=== PATIENT | female | born 1970 | race Caucasian/White ===

== ENCOUNTER 2024-02-16 13:03 | Emergency (ER) | payer OTHER, SELFPAY ==
[2024-02-16 13:09] VITALS: BP 173/95; PULSE 97; TEMP 36.7; O2SAT 99; BMI 47.6
[2024-02-16 13:45] LABS: Basophils Absolute Auto 0.1 10^3/uL (0.0-0.1); Basophils Percent Auto 0.6 % (0.2-2.0); Eosinophils Absolute Auto 0.1 10^3/uL (0.0-0.7); Eosinophils Percent Auto 1.4 % (0.9-7.0); Hemoglobin 14.1 g/dL (12.0-16.0); Immature Granulocytes Abs Auto 0.03 10^3/uL (0.00-0.03); Immature Granulocytes Pct Auto 0.3 % (0.0-0.5); Lymphocytes Absolute Auto 1.6 10^3/uL (1.2-3.8); Mean Corpuscular HGB Conc 33.6 g/dL (29.9-35.2); Mean Corpuscular Hemoglobin 32.6 pg (26.7-34.0); Mean Corpuscular Volume 97.2 fL (81.0-99.0); Mean Platelet Volume 10.4 fL (9.5-13.5); Monocytes Absolute Auto 0.8 10^3/uL (0.3-0.8); Monocytes Percent Auto 8.5 % (1.7-12.0); Neutrophils Absolute Auto 7.2 10^3/uL (1.4-6.5); Neutrophils Percent Auto 73.2 % (43.0-75.0); Platelet Count 246 10^3/uL (150-450); Red Blood Count 4.32 10^6/uL (4.20-5.40); Red Cell Distribution Width 13.2 % (11.0-15.0); White Blood Count 9.8 10^3/uL (4.0-11.0)
[2024-02-16 14:08] LABS: Alanine Aminotransferase 27 U/L (14-59); Albumin Level 3.2 g/dL (3.4-5.0); Alkaline Phosphatase 161 U/L (46-116); Anion Gap 7.9; Aspartate Amino Transferase 25 U/L (15-37); BUN Creatinine Ratio 14.5; Bilirubin Total 0.5 mg/dL (0.2-1.0); Calcium 8.6 mg/dL (8.5-10.1); Carbon Dioxide 29.4 mmol/L (21.0-32.0); Chloride 104 mmol/L (98-107); Estimated GFR (African America >60 (>=60); Estimated GFR (Non-African Ame >60 (>=60); Globulin 3.2 g/dL; Glucose 171 mg/dL (74-106); Potassium 4.3 mmol/L (3.5-5.1); Sodium 137 mmol/L (136-145); Total Protein 6.4 g/dL (6.4-8.2)
--- NOTE | 2024-02-16 14:18 | ED.GENADUL1 ---
HPI HPI - General Adult General Chief complaint: Nausea/Vomiting/Diarrhea Stated complaint: Blood In Stool Time Seen by Provider: 02/16/24 13:10 Source: patient Mode of arrival: walk-in Limitations: no limitations History of Present Illness HPI narrative: The patient is coming to the ER with almost few hours history of noticing blood in her stool, mentioned that it was associated with some diarrhea. She mentioned that she been at least 3 times since the morning noticing blood with the stool, she noted no pain when having the bowel movement but she mentioned she might have had to strain a little bit The patient denies any nausea vomiting but sometimes she would have abdominal cramping mostly lower abdominal She does not have any abdominal pain at the moment Patient have a history of acid reflux on Protonix no history of any ulcer Related Data Home Medications ?Medication ?Instructions ?Recorded ?Confirmed atorvastatin 20 mg tablet 20 mg PO DAILY 02/16/24 02/16/24 carvedilol 12.5 mg tablet 12.5 mg PO DAILY 02/16/24 02/16/24 dulaglutide 4.5 mg/0.5 mL 4.5 mg subcut 02/16/24 subcutaneous pen injector (Trulicity) irbesartan 150 mg tablet 150 mg PO DAILY 02/16/24 02/16/24 levothyroxine 100 mcg tablet 100 mcg PO DAILY 02/16/24 02/16/24 (Synthroid) metformin 500 mg tablet 500 mg PO DAILY 02/16/24 02/16/24 omeprazole 40 mg capsule,delayed 40 mg PO Q8H PRN stomach upset 02/16/24 02/16/24 release tirzepatide 5 mg/0.5 mL mg subcut 02/16/24 subcutaneous pen injector (Lissa) Previous Rx's ?Medication ?Instructions ?Recorded metronidazole 500 mg tablet 500 mg PO Q8H 7 days #21 tabs 02/16/24 Allergies Allergy/AdvReac Type Severity Reaction Status Date / Time No Known Drug Allergies Allergy Verified 02/16/24 13:09 Opioid HPI Opioid Management Most Recent Opioid Data: No Data to Display Review of Systems ROS Status of ROS 10 or more systems reviewed and unremarkable except as noted in history and below PFSH PFSH Social History Little interest or pleasure in doing things: not at all Feeling down, depressed, or hopeless: not at all Exam Narrative Exam Narrative: Nurses notes and vital signs reviewed and patient is not hypoxic. General: Well-appearing and in no apparent distress. Skin: Warm, dry, no pallor noted. No rash. Head: Normocephalic, atraumatic. Neck: Supple, non-tender. Eye: Pupils are equal, round and EOMI. No scleral icterus. Ears, Nose, Mouth, and Throat: TM are clear, no nasal mucosal hypertrophy. Oral mucosa is moist, no posterior oropharynx erythema, uvula is mid-line Cardiovascular: Regular Rate and Rhythm without murmur, gallop or rub. Respiratory: No accessory muscle use or respiratory distress. Lungs are clear to auscultation, no wheezing, rales or rhonchi Chest Wall: no tenderness Back: No midline thoracic or lumbar vertebral tenderness. No CVA tenderness Musculoskeletal: normal ROM, no calf or popliteal tenderness, no lower extremity edema/swelling GI: Abdomen is soft, non-distended. Normal bowel sounds. No masses appreciated. Rectal exam shows no hemorrhoids No tenderness to palpation. No rebound, guarding, or rigidity noted. Neurological: A&O x4. No cranial nerve dysfunction observed. No truncal ataxia. Moves all extremities. Sensation intact. Psychiatric: Cooperative and interactive. Normal mood and affect. Constitutional Vital Signs, click to edit/add: Last Vital Signs Temp 98.1 F 02/16/24 13:09 Pulse 97 H 02/16/24 13:09 Resp 18 02/16/24 13:09 BP 173/95 H 02/16/24 13:09 Pulse Ox 99 02/16/24 13:09 O2 Del Method Room Air 02/16/24 13:09 Course Vital Signs Vital signs: Vital Signs Temperature 98.1 F 02/16/24 13:09 Pulse Rate 97 H 02/16/24 13:09 Respiratory Rate 18 02/16/24 13:09 Blood Pressure 173/95 H 02/16/24 13:09 Pulse Oximetry 99 02/16/24 13:09 Oxygen Delivery Method Room Air 02/16/24 13:09 Temperature 98.1 F 02/16/24 13:09 Pulse Rate 97 H 02/16/24 13:09 Respiratory Rate 18 02/16/24 13:09 Blood Pressure 173/95 H 02/16/24 13:09 Pulse Oximetry 99 02/16/24 13:09 Oxygen Delivery Method Room Air 02/16/24 13:09 Medical Decision Making MDM Narrative Medical decision making narrative: The patient rectal examination did not show any active bleeding but she did had an episode where she had blood in stool and an evaluation showed occult blood positive I did notice that the stool was almost clot-like Patient CBC and chemistry showed no acute pathology her orthostatics were negative with a blood pressure when laying down was 173/93 it went up to 192/116 when standing the patient blood pressure was 160/22 and there was no significant change in heart rate and there was no dizziness The patient CAT scan shows possible colitis The patient had no more episode of bleeding in the ER and right now she is instructed about liquid soft diet in addition to hydration and monitoring her symptoms The patient initially was offered overnight observation but she mentioned that she would just see her primary care doctor in the morning The patient hemoglobin right now is 14 and she is stable she will just keep observation of her current symptoms The patient will come back in case of increasing bleeding or any bleeding more than 24 hours Patient was covered with Flagyl for colitis She had no recent use of any antibiotic The patient is to follow up with primary care physician in next 2-3 days or to return to the emergency department should any of the signs or symptoms worsen or new symptoms develop. The patient agrees with the following Diagnosis and Treatment plan and the patient will be discharged home. Lab Data Labs: Lab Results 02/16/24 02/16/24 Range/Units 13:36 14:15 WBC 9.8 (4.0-11.0) 10^3/uL RBC 4.32 (4.20-5.40) 10^6/uL Hgb 14.1 (12.0-16.0) g/dL Hct 42.0 (36.0-48.0) % MCV 97.2 (81.0-99.0) fL MCH 32.6 (26.7-34.0) pg MCHC 33.6 (29.9-35.2) g/dL RDW 13.2 (11.0-15.0) % Plt Count 246 (150-450) 10^3/uL MPV 10.4 (9.5-13.5) fL Neut % (Auto) 73.2 (43.0-75.0) % Lymph % (Auto) 16.0 L (20.5-60.0) % [place] % (Auto) 8.5 (1.7-12.0) % Eos % (Auto) 1.4 (0.9-7.0) % Baso % (Auto) 0.6 (0.2-2.0) % Neut # (Auto) 7.2 H (1.4-6.5) 10^3/uL Lymph # (Auto) 1.6 (1.2-3.8) 10^3/uL [place] # (Auto) 0.8 (0.3-0.8) 10^3/uL Eos # (Auto) 0.1 (0.0-0.7) 10^3/uL Baso # (Auto) 0.1 (0.0-0.1) 10^3/uL Abs Immat Gran (auto) 0.03 (0.00-0.03) 10^3/uL Imm/Tot Granulo (auto) 0.3 (0.0-0.5) % Sodium 137 (136-145) mmol/L Potassium 4.3 (3.5-5.1) mmol/L Chloride 104 (98-107) mmol/L Carbon Dioxide 29.4 (21.0-32.0) mmol/L Anion Gap 7.9 BUN 12.0 (7.0-18.0) mg/dL Creatinine 0.83 (0.55-1.02) mg/dL Est GFR ( Amer) >60 (>=60) Est GFR (Non-Af Amer) >60 (>=60) BUN/Creatinine Ratio 14.5 Glucose 171 H (74-106) mg/dL Calcium 8.6 (8.5-10.1) mg/dL Total Bilirubin 0.5 (0.2-1.0) mg/dL AST 25 (15-37) U/L ALT 27 (14-59) U/L Alkaline Phosphatase 161 H (46-116) U/L Total Protein 6.4 (6.4-8.2) g/dL Albumin 3.2 L (3.4-5.0) g/dL Globulin 3.2 g/dL Albumin/Globulin Ratio 1.0 Stool Occult Blood Positive A Discharge Plan Discharge Chief Complaint: Nausea/Vomiting/Diarrhea Clinical Impression: Colitis, Rectal bleed Patient Disposition: Home, Self-Care Time of Disposition Decision: 16:05 Condition: Good Prescriptions / Home Meds: New metronidazole 500 mg tablet 500 mg PO Q8H 7 Days Qty: 21 0RF No Action atorvastatin 20 mg tablet 20 mg PO DAILY carvedilol 12.5 mg tablet 12.5 mg PO DAILY Trulicity 4.5 mg/0.5 mL pen injector 4.5 mg SUBCUT metformin 500 mg tablet 500 mg PO DAILY omeprazole 40 mg capsule,delayed release(DR/EC) 40 mg PO Q8H PRN (Reason: stomach upset) levothyroxine [Synthroid] 100 mcg tablet 100 mcg PO DAILY irbesartan 150 mg tablet 150 mg PO DAILY Mounjaro 5 mg/0.5 mL pen injector SUBCUT Print Language: Telugu Instructions: Soft Diet (ED), Colitis (ED), Full Liquid Diet (DC) Referrals: Travis Adams MD [Primary Care Provider] - 1 week
--- NOTE | 2024-02-16 14:35 | CT_ITS ---
[address] [address] Patient Name: ESPERANZA BOYLE MRN: [id number] date: 1970 Sex: F Assigned Patient Location: ER Current Patient Location: ER Accession/Order Number: [id number] Exam Date: 02/16/2024 14:44 Report Date: 02/16/2024 15:52 At the request of: DARA GEOGRE Procedure: CT abdomen pelvis wo con EXAM: CT abdomen pelvis wo con TECHNIQUE: Axial CT images were obtained of the abdomen and pelvis without intravenous contrast. Sagittal and coronal reformatted images were also obtained. Dose reduction techniques were achieved by using automated exposure control and/or adjustment of mA and/or kV according to patient size and/or use of iterative reconstruction technique. HISTORY: abd pain with rectal bleeding COMPARISON: None. FINDINGS: Lower chest: The lower lungs are clear. Liver: Small benign cyst of segment 2 of liver. Gallbladder: Small benign calcified stone of the gallbladder. Pancreas: The pancreas is homogeneous without evidence for mass lesion or inflammation. Spleen: The spleen is unremarkable without evidence for mass lesion. Adrenal glands: The adrenal glands are unremarkable Kidneys and bladder: Mild nonspecific perinephric edema. No hydronephrosis. No obstructing urinary tract stone. The ureters demonstrate normal caliber. The urinary bladder is unremarkable. GI Tract: Stomach is unremarkable. Visualized small bowel is unremarkable without evidence for obstruction or active inflammation. The appendix is unremarkable.Wall thickening of the transverse colon through the rectum. Mild pericolic inflammation of the transverse colon and descending colon. Reproductive: Unremarkable Lymph nodes: No retroperitoneal or abdominal lymphadenopathy. Vascular: The aorta is not dilated. Peritoneum: No free intraperitoneal air or fluid. No acute inflammation. Abdominal wall: Moderate degenerative facet changes of the lower lumbar spine. CT/CT abdomen pelvis wo con IMPRESSION: Wall thickening of the colon with pericolonic inflammation suspicious for inflammatory or infectious colitis. Electronically authenticated by: TERRELL VALLE Date: 02/16/2024 15:52
[2024-02-16 14:53] LABS: Occult Blood Positive
[2024-02-16 14:54] LABS: Internal Control Within Normal Limits
== END 2024-02-16 16:19 | disposition home or self-care (01) ==
PROVIDERS: Emergency Provider Emergency Medicine; PCP Family Medicine
DX: K52.9 Noninfective gastroenteritis and colitis, unspecified (principal); K62.5 Hemorrhage of anus and rectum; K21.9 Gastro-esophageal reflux disease without esophagitis; Z79.899 Other long term (current) drug therapy
CPT/HCPCS: 36415; 74176; 80053; 85025; 99285; G0328

== ENCOUNTER 2024-02-18 07:09 | Outpatient (OUT) | payer OTHER, SELFPAY ==
--- OUTSIDE RECORDS SUMMARY | 2024-02-18 07:13 | XMS_ITS | CCD ---
Author Organization [facility] Care Team Providers Care Drawing Frame Tender Name Role Phone ARLEY ADAMS Unavailable Unavailable ARLEY ADAMS Unavailable Unavailable ARLEY ADAMS Unavailable Unavailable MD Arley Adams Primary Care Provider [phone] [facility], Outreach Attending Provider LALITA ROSS Referring Unavailable LALITA ROSS Attending Unavailable LALITA ROSS Referring Unavailable MD Arley Adams Primary Care Provider [phone] Community, Outreach Attending Provider Community, Outreach Attending Unavailable Arley Adams Primary Care Unavailable Community, Outreach Admitting Unavailable Community, Outreach Attending Unavailable Arley Adams Primary Care Unavailable Community, Outreach Admitting Unavailable Results Test Name Value Interpretation Reference Range Facility Alanine aminotransferase [En zymatic activity/volume] in Serum or PlasmaOrdered By: OUTREACH COMMUNITY on 07-27-2023 ALT [Catalytic activity/Vol] 16 U/L 7-52 [facility] Albumin [Mass/volume] in Ser um or Plasma by Bromocresol green (BCG) dye binding methoOrdered By: OUTREACH COMMUNITY on 07-27-2023 Albumin BCG dye [Mass/Vol] 4.1 g/dL 3.5-5.7 [facility] Alkaline phosphatase [Enzyma tic activity/volume] in Serum or PlasmaOrdered By: OUTREACH COMMUNITY on 07-27-2023 ALP [Catalytic activity/Vol] 152 U/L 34-104 [facility] Aspartate aminotransferase [ Enzymatic activity/volume] in Serum or PlasmaOrdered By: OUTREACH COMMUNITY on 07-27-2023 AST [Catalytic activity/Vol] 19 U/L 13-39 [facility] Bilirubin.total [Mass/volume ] in Serum or PlasmaOrdered By: OUTREACH COMMUNITY on 07-27-2023 Bilirubin [Mass/Vol] 0.6 mg/dL 0.3-1.0 [facility] CBC Without Differentialon 0 07-27-2023 Erythrocyte distribution width (RBC) [Ratio] 13.8 % Normal 11.9-15.3 [facility] Comment on above: Performed By: #### O UTREACH TSH, OUTREACH LIPID, CBCNOOUTREACH, OUTREACH CMP #### [address] Hematocrit (Bld) [Volume fraction] 43.8 % Normal 34.0-46.4 [facility] Comment on above: Performed By: #### O UTREACH TSH, OUTREACH LIPID, CBCNOOUTREACH, OUTREACH CMP #### [address] Hemoglobin (Bld) [Mass/Vol] 14.8 g/dL Normal 11.8-15.4 [facility] Comment on above: Performed By: #### O UTREACH TSH, OUTREACH LIPID, CBCNOOUTREACH, OUTREACH CMP #### [address] MCH (RBC) [Entitic mass] 31.9 pg Normal 24.7-34.3 [facility] Comment on above: Performed By: #### O UTREACH TSH, OUTREACH LIPID, CBCNOOUTREACH, OUTREACH CMP #### [address] MCV (RBC) [Entitic vol] 94.6 fL Normal 80-100 [facility] Comment on above: Performed By: #### O UTREACH TSH, OUTREACH LIPID, CBCNOOUTREACH, OUTREACH CMP #### [address] Mean Corpuscular HGB Conc 33.7 g/dL Normal 32.0-35.0 [facility] Comment on above: Performed By: #### O UTREACH TSH, OUTREACH LIPID, CBCNOOUTREACH, OUTREACH CMP #### [address] Platelet mean volume (Bld) [Entitic vol] 9.2 fL Normal 6.3-10.7 [facility] Comment on above: Result Comment: PERF ORMED BY: [place] [address] PATHOLOGIST PULMONARY SPECIALIST ANTOINE CISNEROS M.D. Performed By: #### O UTREACH TSH, OUTREACH LIPID, CBCNOOUTREACH, OUTREACH CMP #### [address] Platelets (Bld) [#/Vol] 281 10*3/uL Normal 150-450 [facility] Comment on above: Performed By: #### O UTREACH TSH, OUTREACH LIPID, CBCNOOUTREACH, OUTREACH CMP #### [address] RBC (Bld) [#/Vol] 4.63 10*6/uL Normal 3.60-5.00 [facility] Comment on above: Performed By: #### O UTREACH TSH, OUTREACH LIPID, CBCNOOUTREACH, OUTREACH CMP #### [address] WBC (Bld) [#/Vol] 9.6 10*3/uL Normal 3.8-11.6 [facility] Comment on above: Performed By: #### O UTREACH TSH, OUTREACH LIPID, CBCNOOUTREACH, OUTREACH CMP #### [facility] [address] [place] [address] CMP Outreachon 07-27-2023 Albumin [Mass/Vol] 4.1 g/dL Normal 3.5-5.7 [facility] Comment on above: Performed By: #### O UTREACH TSH, OUTREACH LIPID, CBCNOOUTREACH, OUTREACH CMP #### [address] ALP [Catalytic activity/Vol] 152 U/L High 34-104 [facility] Comment on above: Performed By: #### O UTREACH TSH, OUTREACH LIPID, CBCNOOUTREACH, OUTREACH CMP #### [facility] [address] [id number] [place] ALT [Catalytic activity/Vol] 16 U/L Normal 7-52 [facility] Comment on above: Performed By: #### O UTREACH TSH, OUTREACH LIPID, CBCNOOUTREACH, OUTREACH CMP #### [facility] [address] [id number] [place] Anion gap [Moles/Vol] 8.6 mmol/L Normal 6.0-15.0 [facility] Comment on above: Performed By: #### O UTREACH TSH, OUTREACH LIPID, CBCNOOUTREACH, OUTREACH CMP #### [facility] [address] [place] [address] [place] AST [Catalytic activity/Vol] 19 U/L Normal 13-39 [facility] Comment on above: Performed By: #### O UTREACH TSH, OUTREACH LIPID, CBCNOOUTREACH, OUTREACH CMP #### [facility] [address] [place] [address] [place] Bilirubin [Mass/Vol] 0.6 mg/dL Normal 0.3-1.0 [facility] Comment on above: Performed By: #### O UTREACH TSH, OUTREACH LIPID, CBCNOOUTREACH, OUTREACH CMP #### [facility] [address] [place], [place] [id number] [place] Calcium [Mass/Vol] 9.7 mg/dL Normal 8.6-10.3 [facility] Comment on above: Performed By: #### O UTREACH TSH, OUTREACH LIPID, CBCNOOUTREACH, OUTREACH CMP #### [facility] [address] [phone] [place] Chloride [Moles/Vol] 106 mmol/L Normal 98-107 [facility] Comment on above: Performed By: #### O UTREACH TSH, OUTREACH LIPID, CBCNOOUTREACH, OUTREACH CMP #### [facility] [address] [id number] [place] CO2 [Moles/Vol] 31.2 mmol/L High 21.0-31.[address] [facility] Comment on above: Performed By: #### O UTREACH TSH, OUTREACH LIPID, CBCNOOUTREACH, OUTREACH CMP #### [facility] [address] Creatinine [Mass/Vol] 0.73 mg/dL Normal 0.60-1.20 [facility] Comment on above: Performed By: #### O UTREACH TSH, OUTREACH LIPID, CBCNOOUTREACH, OUTREACH CMP #### [facility] [address] [place] [address] [place] GFR/1.73 sq M.predicted MDRD (S/P/Bld) [Vol rate/Area] mL/min/{1.73_m2} Normal [facility] Comment on above: Performed By: #### O UTREACH TSH, OUTREACH LIPID, CBCNOOUTREACH, OUTREACH CMP #### [place] [address] [place] Glucose [Mass/Vol] 105 mg/dL High 70-100 [facility] Comment on above: Result Comment: [facility] Glucose Reference Range is dependent on time and content of last meal. Glucose of more than 200 mg/dL in a nonstressed, ambulatory subject supports the diagnosis of Diabetes Mellitus. ADA recommended reference range Performed By: #### O UTREACH TSH, OUTREACH LIPID, CBCNOOUTREACH, OUTREACH CMP #### [address] Potassium [Moles/Vol] 4.8 mmol/L Normal 3.5-5.1 [facility] Comment on above: Performed By: #### O UTREACH TSH, OUTREACH LIPID, CBCNOOUTREACH, OUTREACH CMP #### [place] [address] [place] Protein [Mass/Vol] 6.3 g/dL Low 6.4-8.9 [facility] Comment on above: Performed By: #### O UTREACH TSH, OUTREACH LIPID, CBCNOOUTREACH, OUTREACH CMP #### [place] [address] [place] Sodium [Moles/Vol] 141 mmol/L Normal 136-145 [facility] Comment on above: Performed By: #### O UTREACH TSH, OUTREACH LIPID, CBCNOOUTREACH, OUTREACH CMP #### [facility] [address] [place] [address] [place] Urea nitrogen [Mass/Vol] 13 mg/dL Normal 7-25 [facility] Comment on above: Performed By: #### O UTREACH TSH, OUTREACH LIPID, CBCNOOUTREACH, OUTREACH CMP #### [facility] [address] [place] [address] [place] Calcium [Mass/volume] in Ser um or PlasmaOrdered By: OUTREACH COMMUNITY on 07-27-2023 Calcium [Mass/Vol] 9.7 mg/dL 8.6-10.3 [facility] Carbon dioxide, total [Moles /volume] in Serum or PlasmaOrdered By: OUTREACH COMMUNITY on 07-27-2023 CO2 [Moles/Vol] 31.2 mmol/L 21.0-31.[address] [facility] Chloride [Moles/volume] in S nazanin or PlasmaOrdered By: OUTREACH COMMUNITY on 07-27-2023 Chloride [Moles/Vol] 106 mmol/L 98-107 [facility] Cholesterol [Mass/volume] in Serum or PlasmaOrdered By: OUTREACH COMMUNITY on 07-27-2023 Cholesterol [Mass/Vol] 136 mg/dL 140-200 [facility] Comment on above: Chol less than 200 m g/dl low riskChol 201-239 mg/dl borderline riskChol 240 mg/dl and greater high risk Cholesterol in LDL Calc [Mas s/Vol]Ordered By: OUTREACH COMMUNITY on 07-27-2023 Cholesterol in LDL [Mass/Vol] 80 mg/dL 0-100 [facility] Comment on above: LDL ATP III CLASSIFI CATIONLDL less than 100 mg/dL OptimalLDL 100-129 mg/dL Near or above optimalLDL 130-159 mg/dL Borderline highLDL 160-189 mg/dL HighLDL greater than 189 mg/dL Very high Cholesterol in VLDL Calc [Ma ss/Vol]Ordered By: OUTREACH COMMUNITY on 07-27-2023 Cholesterol in VLDL [Mass/Vol] 15 mg/dL [facility] Creatinine [Mass/volume] in Serum or PlasmaOrdered By: OUTREACH COMMUNITY on 07-27-2023 Creatinine [Mass/Vol] 0.73 mg/dL 0.60-1.20 [facility] Erythrocyte distribution wid th Auto (RBC) [Ratio]Ordered By: [facility] on 07-27-2023 Erythrocyte distribution width (RBC) [Ratio] 13.8 % 11.9-15.3 [facility] Glucose [Mass/volume] in Ser um or PlasmaOrdered By: [facility] on 07-27-2023 Glucose [Mass/Vol] 105 mg/dL 70-100 [facility] Comment on above: ADA recommended refe rence rangeRandom Glucose Reference Range is dependent on time and content of last meal. Glucose of more than 200 mg/dL in a nonstressed, ambulatory subject supports the diagnosis of Diabetes Mellitus. Hematocrit Auto (Bld) [Volum e fraction]Ordered By: [facility] on 07-27-2023 Hematocrit (Bld) [Volume fraction] 43.8 % 34.0-46.4 [facility] Hemoglobin [Mass/volume] in BloodOrdered By: [facility] on 07-27-2023 Hemoglobin (Bld) [Mass/Vol] 14.8 g/dL 11.8-15.4 [facility] Leukocytes [#/volume] correc alison for nucleated erythrocytes in Blood by Automated counOrdered By: [facility] on 07-27-2023 WBC corrected for nucl RBC Auto (Bld) [#/Vol] 9.6 10*3/uL 3.8-11.6 [facility] Lipid Profile Outreachon Cholesterol [Mass/Vol] 136 mg/dL Low 140-200 [facility] Comment on above: Result Comment: Chol less than 200 mg/dl low risk Chol 201-239 mg/dl borderline risk Chol 240 mg/dl and greater high risk Performed By: #### O [facility] TSH, OUTREACH LIPID, CBCNOOUTREACH, OUTREACH CMP #### [facility] [address] Cholesterol in HDL [Mass/Vol] 41 mg/dL Normal 23-92 [facility] Comment on above: Result Comment: HDL CHOL ATP-III CLASSIFICATION Cardiovascular Risk HDL > or equal to 60 mg/dL LOW HDL < 40 mg/dL HIGH Performed By: #### O UTREA TSH, OUTREACH LIPID, CBCNOOUTREACH, OUTREACH CMP #### [facility] [address] Cholesterol.total/Saimra sterol in HDL [Mass ratio] 3.3 {ratio} Normal <5.0 [facility] Comment on above: Performed By: #### O UTREACH TSH, OUTREACH LIPID, CBCNOOUTREACH, OUTREACH CMP #### [facility] [address] LDL Cholesterol,Calculated 80 mg/dL Normal 0-100 [facility] Comment on above: Result Comment: LDL ATP III CLASSIFICATION LDL less than 100 mg/dL Optimal LDL 100-129 mg/dL Near or above optimal LDL 130-159 mg/dL Borderline high LDL 160-189 mg/dL High LDL greater than 189 mg/dL Very high Performed By: #### O UTREACH TSH, OUTREACH LIPID, CBCNOOUTREACH, OUTREACH CMP #### [facility] [address] Triglyceride w/Reflex 77 mg/dL Normal 0-149 [facility] Comment on above: Result Comment: TRIG ATP III CLASSIFICATION TRIG less than 150 mg/dL Normal TRIG 150-199 mg/dL Borderline high TRIG 200-500 mg/dL High TRIG greater than 500 mg/dL Very high Standard traceable to the Center for Disease Conrtrol and Prevention (CDC) test method. Performed By: #### O UTREACH TSH, OUTREACH LIPID, CBCNOOUTREACH, OUTREACH CMP #### [facility] [address] VLDL CHOLESTEROL 15 mg/dL Normal [facility] Comment on above: Performed By: #### O UTREACH TSH, OUTREACH LIPID, CBCNOOUTREACH, OUTREACH CMP #### [facility] [address] MCH Auto (RBC) [Entitic mass ]Ordered By: OUTREACH COMMUNITY on 07-27-2023 MCH (RBC) [Entitic mass] 31.9 pg 24.7-34.3 [facility] MCHC Auto (RBC) [Mass/Vol]Or dered By: OUTREACH COMMUNITY on 07-27-2023 MCHC (RBC) [Mass/Vol] 33.7 g/dL 32.0-35.0 [facility] MCV Auto (RBC) [Entitic vol] Ordered By: OUTREACH [facility] on 07-27-2023 MCV (RBC) [Entitic vol] 94.6 fL 80-100 [facility] No Panel InformationOrdered By: OUTREACH [facility] on 07-27-2023 Estimated GFR (CKD-EPI) > 60.0 mL/Min [facility] Creatinine Clearance (Chem N/A [facility] Platelet mean volume Auto (B ld) [Entitic vol]Ordered By: OUTREACH [facility] on 07-27-2023 Platelet mean volume (Bld) [Entitic vol] 9.2 fL 6.3-10.7 [facility] Platelets Auto (Bld) [#/Vol] Ordered By: OUTREACH [facility] on 07-27-2023 Platelets (Bld) [#/Vol] 281 10*3/uL 150-450 [facility] Potassium [Moles/volume] in Serum or PlasmaOrdered By: OUTREACH [facility] on 07-27-2023 Potassium [Moles/Vol] 4.8 mmol/L 3.5-5.1 [facility] Protein [Mass/volume] in Ser um or PlasmaOrdered By: OUTREACH [facility] on 07-27-2023 Protein [Mass/Vol] 6.3 g/dL 6.4-8.9 [facility] RBC Auto (Bld) [#/Vol]Ordere d By: OUTREACH [facility] on 07-27-2023 RBC (Bld) [#/Vol] 4.63 10*6/uL 3.60-5.00 [facility] Serum or plasma anion gap de terminationOrdered By: OUTREACH [facility] on 07-27-2023 Anion gap [Moles/Vol] 8.6 mmol/L 6.0-15.0 [facility] Serum or plasma high density lipoprotein (HDL) cholesterol measurementOrdered By: OUTREACH [facility] on 07-27-2023 Cholesterol in HDL [Mass/Vol] 41 mg/dL 23-92 [facility] Comment on above: HDL CHOL ATP-III CLA SSIFICATION Cardiovascular RiskHDL > or equal to 60 mg/dL LOWHDL < 40 mg/dL HIGH Serum or plasma total choles terol/high density lipoprotein (HDL) cholesterol mass ratOrdered By: OUTREACH COMMUNITY on 07-27-2023 Cholesterol.total/Samira sterol in HDL [Mass ratio] 3.3 {ratio} <5.0 [facility] Sodium [Moles/volume] in Ser um or PlasmaOrdered By: OUTREACH [facility] on 07-27-2023 Sodium [Moles/Vol] 141 mmol/L 136-145 [facility] Thyroid Stimulating Hormoneo n 07-27-2023 TSH Qn 1.87 m[IU]/L Normal 0.45-5.33 [facility] Comment on above: Result Comment: PERF ORMED BY: [place] [address] PATHOLOGIST PULMONARY SPECIALIST ANTOINE CISNEROS M.D. Performed By: #### [facility] TSH, OUTREACH LIPID, CBCNOOUTREACH, OUTREACH CMP #### [facility] [address] Thyrotropin [Units/volume] i n Serum or PlasmaOrdered By: OUTREACH [facility] on 07-27-2023 TSH Qn 1.87 m[IU]/L 0.45-5.33 [facility] Triglyceride [Mass/volume] i n Serum or PlasmaOrdered By: [facility] on 07-27-2023 Triglyceride [Mass/Vol] 77 mg/dL 0-149 [facility] Comment on above: TRIG ATP III CLASSIF ICATIONTRIG less than 150 mg/dL NormalTRIG 150-199 mg/dL Borderline highTRIG 200-500 mg/dL High TRIG greater than 500 mg/dL Very highStandard traceable to the Center for Disease Conrtrol and Prevention (CDC) test method. Urea nitrogen [Mass/volume] in Serum or PlasmaOrdered By: OUTREACH COMMUNITY on 07-27-2023 Urea nitrogen [Mass/Vol] 13 mg/dL 7- [facility] BI MAMMOGRAM SCREENING TOMOS YNTHESIS BILATERALon 04-25-2023 BI MAMMOGRAM SCREENING TOMOSYNTHESIS BILATERAL This is a summary report. The complete report is available in the patient's medical record. If you cannot access the medical record, please contact the sending organization for a detailed fax or copy. EXAMINATION: BI MAMMOGRAM SCREENING TOMOSYNTHESIS BILATERAL CLINICAL HISTORY: screening COMPARISON: Priors from 2021, 2019, 2018. RESULT: 3-D tomosynthesis imaging of the bilateral breast(s) was performed. Density: Scattered fibroglandular density [2] There are no suspicious masses or asymmetries, areas of architectural distortion or suspicious areas of microcalcifications. IMPRESSION: BIRADS 1 - Negative Recommended follow-up: Routine Screening Mamm Board Certified Radiologists. Accredited by the ACR and FDA. MAMMOGRAPHY IS VERY IMPORTANT TO YOUR HEALTH. THE [place] [employer] GUIDELINES RECOMMEND THAT WOMEN 40 YEARS OF AGE AND OLDER SHOULD HAVE A MAMMOGRAM EVERY YEAR. A REMINDER LETTER WILL BE SENT AT THE APPROPRIATE TIME. THIS FACILITY UTILIZES A REMINDER SYSTEM TO ENSURE ALL PATIENTS RECEIVE REMINDER NOTIFICATIONS AT THE APPROPRIATE TIME BASED ON THE RECOMMENDATIONS OF THIS EXAM. THIS INCLUDES REMINDERS FOR ROUTINE SCREENING MAMMOGRAMS, DIAGNOSTIC MAMMOGRAMS IN WHICH THE PATIENT IS ASKED TO RETURN FOR ADDITIONAL VIEWS, OR OTHER BREAST IMAGING INTERVENTIONS WHEN APPROPRIATE. THE PATIENT WILL BE PLACED IN THE APPROPRIATE REMINDER SYSTEM INCLUDING A REMINDER AT THE APPROPRIATE TIME FOR ANY PENDING ADDITIONAL VIEWS. ELECTRONICALLY SIGNED BY: Stevenson Nick MD Normal Not Available Comment on above: Order Comment: Spot compression and us prn Alanine aminotransferase [En zymatic activity/volume] in Serum or PlasmaOrdered By: OUTREACH COMMUNITY on 08-25-2022 ALT [Catalytic activity/Vol] 15 U/L Normal 7-52 [facility] Comment on above: Performed By: #### C BCNOOUTREACH, OUTREACH GLYCO, OUTREACH CMP, OUTREACH LIPID, OUTREACH TSH #### [facility] [address] [place] [address] [place] Albumin [Mass/volume] in Ser um or Plasma by Bromocresol green (BCG) dye binding methoOrdered By: OUTREACH COMMUNITY on 08-25-2022 Albumin BCG dye [Mass/Vol] 4.4 g/dL 3.5-5.7 [facility] Alkaline phosphatase [Enzyma tic activity/volume] in Serum or PlasmaOrdered By: OUTREACH COMMUNITY on 08-25-2022 ALP [Catalytic activity/Vol] 145 U/L High 34-104 [facility] Comment on above: Performed By: #### C BCNOOUTREACH, OUTREACH GLYCO, OUTREACH CMP, OUTREACH LIPID, OUTREACH TSH #### [facility] [address] Aspartate aminotransferase [ Enzymatic activity/volume] in Serum or PlasmaOrdered By: OUTREACH COMMUNITY on 08-25-2022 AST [Catalytic activity/Vol] 20 U/L Normal 13-39 [facility] Comment on above: Performed By: #### C BCNOOUTREACH, OUTREACH GLYCO, OUTREACH CMP, OUTREACH LIPID, OUTREACH TSH #### [facility] [address] Bilirubin.total [Mass/volume ] in Serum or PlasmaOrdered By: OUTREACH COMMUNITY on 08-25-2022 Bilirubin [Mass/Vol] 0.7 mg/dL Normal 0.3-1.0 [facility] Comment on above: Performed By: #### C BCNOOUTREACH, OUTREACH GLYCO, OUTREACH CMP, OUTREACH LIPID, OUTREACH TSH #### [facility] [address] [place] [address] CBC Without Differentialon 0 08-25-2022 Mean Corpuscular HGB Conc 33.3 g/dL Normal 32.0-35.0 [facility] Comment on above: Performed By: #### C BCNOOUTREACH, OUTREACH GLYCO, OUTREACH CMP, OUTREACH LIPID, OUTREACH TSH #### [facility] [address] [place] [address] WBC (Bld) [#/Vol] 6.9 10*3/uL Normal 3.8-11.6 [facility] Comment on above: Performed By: #### C BCNOOUTREACH, OUTREACH GLYCO, OUTREACH CMP, OUTREACH LIPID, OUTREACH TSH #### [facility] [address] CMP Outreachon 08-25-2022 Albumin [Mass/Vol] 4.4 g/dL Normal 3.5-5.7 [facility] Comment on above: Performed By: #### C BCNOOUTREACH, OUTREACH GLYCO, OUTREACH CMP, OUTREACH LIPID, OUTREACH TSH #### [facility] [address] [place] [address] CMP OutreachOrdered By: OUTR EACH COMMUNITY on 08-25-2022 GFR/1.73 sq M.predicted MDRD (S/P/Bld) [Vol rate/Area] mL/min/{1.73_m2} Normal [facility] Comment on above: Performed By: #### C BCNOOUTREACH, OUTREACH GLYCO, OUTREACH CMP, OUTREACH LIPID, OUTREACH TSH #### [facility] [address] [phone] [place] Calcium [Mass/volume] in Ser um or PlasmaOrdered By: OUTREACH COMMUNITY on 08-25-2022 Calcium [Mass/Vol] 10.3 mg/dL Normal 8.6-10.3 [facility] Comment on above: Performed By: #### C BCNOOUTREACH, OUTREACH GLYCO, OUTREACH CMP, OUTREACH LIPID, OUTREACH TSH #### [facility] [address] [place] [address] [place] Carbon dioxide, total [Moles /volume] in Serum or PlasmaOrdered By: OUTREACH COMMUNITY on 08-25-2022 CO2 [Moles/Vol] 28.3 mmol/L Normal 21.0-31.[address] [facility] Comment on above: Performed By: #### C BCNOOUTREACH, OUTREACH GLYCO, OUTREACH CMP, OUTREACH LIPID, OUTREACH TSH #### [facility] [address] [place] [address] [place] Chloride [Moles/volume] in S nazanin or PlasmaOrdered By: OUTREACH COMMUNITY on 08-25-2022 Chloride [Moles/Vol] 106 mmol/L Normal 98-107 [facility] Comment on above: Performed By: #### C BCNOOUTREACH, OUTREACH GLYCO, OUTREACH CMP, OUTREACH LIPID, OUTREACH TSH #### [facility] [address] [phone] [place] Cholesterol [Mass/volume] in Serum or PlasmaOrdered By: OUTREACH COMMUNITY on 08-25-2022 Cholesterol [Mass/Vol] 133 mg/dL Low 140-200 [facility] Comment on above: Chol less than 200 m g/dl low riskChol 201-239 mg/dl borderline riskChol 240 mg/dl and greater high risk Result Comment: Chol less than 200 mg/dl low risk Chol 201-239 mg/dl borderline risk Chol 240 mg/dl and greater high risk Performed By: #### C BCNOOUTREACH, OUTREACH GLYCO, OUTREACH CMP, OUTREACH LIPID, OUTREACH TSH #### [facility] [address] [place] [address] [place] Cholesterol in LDL Calc [Mas s/Vol]Ordered By: [facility] on 08-25-2022 Cholesterol in LDL [Mass/Vol] 69 mg/dL 0-100 [facility] Comment on above: LDL ATP III CLASSIFI CATIONLDL less than 100 mg/dL OptimalLDL 100-129 mg/dL Near or above optimalLDL 130-159 mg/dL Borderline highLDL 160-189 mg/dL HighLDL greater than 189 mg/dL Very high Cholesterol in VLDL Calc [Ma ss/Vol]Ordered By: [facility] on 08-25-2022 Cholesterol in VLDL [Mass/Vol] 14 mg/dL [facility] Creatinine [Mass/volume] in Serum or PlasmaOrdered By: [facility] on 08-25-2022 Creatinine [Mass/Vol] 0.70 mg/dL Normal 0.60-1.20 [facility] Comment on above: Performed By: #### C BCNOOUTREACH, OUTREACH GLYCO, OUTREACH CMP, OUTREACH LIPID, OUTREACH TSH #### [facility] [address] [id number] [place] Erythrocyte distribution wid th [Ratio] by Automated countOrdered By: [facility] on 08-25-2022 Erythrocyte distribution width (RBC) [Ratio] 14.2 % Normal 11.9-15.3 [facility] Comment on above: Performed By: #### C BCNOOUTREACH, OUTREACH GLYCO, OUTREACH CMP, OUTREACH LIPID, OUTREACH TSH #### [facility] Administration [address] [id number] [place] Erythrocytes [#/volume] in B lood by Automated countOrdered By: [facility] on 08-25-2022 RBC (Bld) [#/Vol] 4.56 10*6/uL Normal 3.60-5.00 [facility] Comment on above: Performed By: #### C BCNOOUTREACH, OUTREACH GLYCO, OUTREACH CMP, OUTREACH LIPID, OUTREACH TSH #### [facility] [address] [place] [address] [place] Glucose [Mass/volume] in Ser um or PlasmaOrdered By: [facility] on 08-25-2022 Glucose [Mass/Vol] 108 mg/dL Normal 74-109 [facility] Comment on above: ADA recommended refe rence rangeRandom Glucose Reference Range is dependent on time and content of last meal. Glucose of more than 200 mg/dL in a nonstressed, ambulatory subject supports the diagnosis of Diabetes Mellitus. Result Comment: [place] Glucose Reference Range is dependent on time and content of last meal. Glucose of more than 200 mg/dL in a nonstressed, ambulatory subject supports the diagnosis of Diabetes Mellitus. ADA recommended reference range Performed By: #### C BCNOOUTREACH, OUTREACH GLYCO, OUTREACH CMP, OUTREACH LIPID, OUTREACH TSH #### [facility] [address] Glucose mean value [Mass/vol ume] in Blood Estimated from glycated hemoglobinOrdered By: [facility] on 08-25-2022 Average glucose Estimated from glycated hemoglobin (Bld) [Mass/Vol] 128 mg/dL [facility] Hematocrit [Volume Fraction] of Blood by Automated countOrdered By: [facility] on 08-25-2022 Hematocrit (Bld) [Volume fraction] 43.9 % Normal 34.0-46.4 [facility] Comment on above: Performed By: #### C BCNOOUTREACH, OUTREACH GLYCO, OUTREACH CMP, OUTREACH LIPID, OUTREACH TSH #### [facility] [address] [place] [address] [place] Hemoglobin [Mass/volume] in BloodOrdered By: [facility] on 08-25-2022 Hemoglobin (Bld) [Mass/Vol] 14.6 g/dL Normal 11.8-15.4 [facility] Comment on above: Performed By: #### C BCNOOUTREACH, OUTREACH GLYCO, OUTREACH CMP, OUTREACH LIPID, OUTREACH TSH #### [facility] [address] [id number] [place] Leukocytes [#/volume] correc alison for nucleated erythrocytes in Blood by Automated counOrdered By: [facility] on 08-25-2022 WBC corrected for nucl RBC Auto (Bld) [#/Vol] 6.9 10*3/uL 3.8-11.6 [facility] Lipid Profile Outreachon LDL Cholesterol,Calculated 69 mg/dL Normal 0-100 [facility] Comment on above: Result Comment: LDL ATP III CLASSIFICATION LDL less than 100 mg/dL Optimal LDL 100-129 mg/dL Near or above optimal LDL 130-159 mg/dL Borderline high LDL 160-189 mg/dL High LDL greater than 189 mg/dL Very high Performed By: #### C BCNOOUTREACH, OUTREACH GLYCO, OUTREACH CMP, OUTREACH LIPID, OUTREACH TSH #### [facility] [address] Triglyceride w/Reflex 72 mg/dL Normal 0-149 [facility] Comment on above: Result Comment: TRIG ATP III CLASSIFICATION TRIG less than 150 mg/dL Normal TRIG 150-199 mg/dL Borderline high TRIG 200-500 mg/dL High TRIG greater than 500 mg/dL Very high Standard traceable to the Center for Disease Conrtrol and Prevention (CDC) test method. Performed By: #### C BCNOOUTREACH, OUTREACH GLYCO, OUTREACH CMP, OUTREACH LIPID, OUTREACH TSH #### [address] VLDL CHOLESTEROL 14 mg/dL Normal [facility] Comment on above: Performed By: #### C BCNOOUTREACH, OUTREACH GLYCO, OUTREACH CMP, OUTREACH LIPID, OUTREACH TSH #### [address] MCH [Entitic mass] by Automa alison countOrdered By: OUTREACH COMMUNITY on 08-25-2022 MCH (RBC) [Entitic mass] 32.0 pg Normal 24.7-34.3 [facility] Comment on above: Performed By: #### C BCNOOUTREACH, OUTREACH GLYCO, OUTREACH CMP, OUTREACH LIPID, OUTREACH TSH #### [facility] [address] [place] [address] MCHC Auto (RBC) [Mass/Vol]Or dered By: OUTREACH COMMUNITY on 08-25-2022 MCHC (RBC) [Mass/Vol] 33.3 g/dL 32.0-35.0 [facility] MCV [Entitic volume] by Auto mated countOrdered By: OUTREACH COMMUNITY on 08-25-2022 MCV (RBC) [Entitic vol] 96.3 fL Normal 80-100 [facility] Comment on above: Performed By: #### C BCNOOUTREACH, OUTREACH GLYCO, OUTREACH CMP, OUTREACH LIPID, OUTREACH TSH #### [facility] [address] [place] [address] No Panel InformationOrdered By: OUTREACH COMMUNITY on 08-25-2022 Pharmacy Creatinine Clearance (Chem N/A [facility] 08-25-2022 Glucose [Mass/Vol] 128 mg/dL Normal [facility] Comment on above: Result Comment: PERF ORMED BY: [place] [address] PATHOLOGIST PULMONARY SPECIALIST ANTOINE CISNEROS M.D. Performed By: #### C BCNOOUTREACH, OUTREACH GLYCO, OUTREACH CMP, OUTREACH LIPID, OUTREACH TSH #### [facility] [address] [place] [address] Outreach GlycoOrdered By: [facility] on 08-25-2022 HbA1c (Bld) [Mass fraction] 6.1 % High 4.3-5.6 [facility] Comment on above: Increased risk for d iabetes: 5.7 - 6.4diabetes: >6.4glycemic control for adults with diabetes: <7.0 Result Comment: Incr eased risk for diabetes: 5.7 - 6.4 diabetes: >6.4 glycemic control for adults with diabetes: <7.0 Performed By: #### C BCNOOUTREACH, OUTREACH GLYCO, OUTREACH CMP, OUTREACH LIPID, OUTREACH TSH #### [facility] [address] [place] [address] Platelet mean volume [Entiti c volume] in Blood by Automated countOrdered By: [facility] on 08-25-2022 Platelet mean volume (Bld) [Entitic vol] 9.4 fL Normal 6.3-10.7 [facility] Comment on above: Result Comment: PERF ORMED BY: [place] [address] PATHOLOGIST PULMONARY SPECIALIST ANTOINE CISNEROS M.D. Performed By: #### C BCNOOUTREACH, OUTREACH GLYCO, OUTREACH CMP, OUTREACH LIPID, OUTREACH TSH #### [facility] [address] [place] [address] [place] Platelets [#/volume] in Bloo d by Automated countOrdered By: OUTREACH COMMUNITY on 08-25-2022 Platelets (Bld) [#/Vol] 241 10*3/uL Normal 150-450 [facility] Comment on above: Performed By: #### C BCNOOUTREACH, OUTREACH GLYCO, OUTREACH CMP, OUTREACH LIPID, OUTREACH TSH #### [facility] [address] [place] [address] [place] Potassium [Moles/volume] in Serum or PlasmaOrdered By: [facility] on 08-25-2022 Potassium [Moles/Vol] 4.7 mmol/L Normal 3.5-5.1 [facility] Comment on above: Performed By: #### C BCNOOUTREACH, OUTREACH GLYCO, OUTREACH CMP, OUTREACH LIPID, OUTREACH TSH #### [facility] [address] [place] [address] [place] Protein [Mass/volume] in Ser um or PlasmaOrdered By: OUTREACH COMMUNITY on 08-25-2022 Protein [Mass/Vol] 6.7 g/dL Normal 6.4-8.9 [facility] Comment on above: Performed By: #### C BCNOOUTREACH, OUTREACH GLYCO, OUTREACH CMP, OUTREACH LIPID, OUTREACH TSH #### [facility] [address] [place], [place] [id number] [place] Serum or plasma anion gap de terminationOrdered By: OUTREACH COMMUNITY on 08-25-2022 Anion gap [Moles/Vol] 12.4 mmol/L Normal 6.0-15.0 [facility] Comment on above: Performed By: #### C BCNOOUTREACH, OUTREACH GLYCO, OUTREACH CMP, OUTREACH LIPID, OUTREACH TSH #### [facility] [address] [place] [address] [place] Serum or plasma high density lipoprotein (HDL) cholesterol measurementOrdered By: OUTREACH COMMUNITY on 08-25-2022 Cholesterol in HDL [Mass/Vol] 50 mg/dL Normal 35-85 [facility] Comment on above: HDL CHOL ATP-III CLA SSIFICATION Cardiovascular RiskHDL > or equal to 60 mg/dL LOWHDL < 40 mg/dL HIGH Result Comment: HDL CHOL ATP-III CLASSIFICATION Cardiovascular Risk HDL > or equal to 60 mg/dL LOW HDL < 40 mg/dL HIGH Performed By: #### C BCNOOUTREACH, OUTREACH GLYCO, OUTREACH CMP, OUTREACH LIPID, OUTREACH TSH #### [facility] [address] Serum or plasma total choles terol/high density lipoprotein (HDL) cholesterol mass ratOrdered By: OUTREACH COMMUNITY on 08-25-2022 Cholesterol.total/Samira sterol in HDL [Mass ratio] 2.7 {ratio} Normal <5.0 [facility] Comment on above: Performed By: #### C BCNOOUTREACH, OUTREACH GLYCO, OUTREACH CMP, OUTREACH LIPID, OUTREACH TSH #### [facility] [address] [place] [address] [place] Sodium [Moles/volume] in Ser um or PlasmaOrdered By: OUTREACH COMMUNITY on 08-25-2022 Sodium [Moles/Vol] 142 mmol/L Normal 136-145 [facility] Comment on above: Performed By: #### C BCNOOUTREACH, OUTREACH GLYCO, OUTREACH CMP, OUTREACH LIPID, OUTREACH TSH #### [facility] [address] [place] [address] Thyrotropin [Units/volume] i n Serum or PlasmaOrdered By: [facility] on 08-25-2022 TSH Qn 1.44 m[IU]/L Normal 0.45-5.33 [facility] Comment on above: Result Comment: PERF ORMED BY: [place] [address] PATHOLOGIST PULMONARY SPECIALIST ANTOINE CISNEROS M.D. Performed By: #### C BCNOOUTREACH, OUTREACH GLYCO, OUTREACH CMP, OUTREACH LIPID, OUTREACH TSH #### [facility] [address] [place] [address] Triglyceride [Mass/volume] i n Serum or PlasmaOrdered By: OUTREACH COMMUNITY on 08-25-2022 Triglyceride [Mass/Vol] 72 mg/dL 0-149 [facility] Comment on above: TRIG ATP III CLASSIF ICATIONTRIG less than 150 mg/dL NormalTRIG 150-199 mg/dL Borderline highTRIG 200-500 mg/dL High TRIG greater than 500 mg/dL Very highStandard traceable to the Center for Disease Conrtrol and Prevention (CDC) test method. Urea nitrogen [Mass/volume] in Serum or PlasmaOrdered By: OUTREACH COMMUNITY on 08-25-2022 Urea nitrogen [Mass/Vol] 15 mg/dL Normal 7-25 [facility] Comment on above: Performed By: #### C BCNOOUTREACH, OUTREACH GLYCO, OUTREACH CMP, OUTREACH LIPID, OUTREACH TSH #### [facility] [address] SCREENING MAMMOGRAM W/SWETA, BILATERAL*on 04-27-2022 SCREENING MAMMOGRAM W/SWETA, BILATERAL* CLINICAL HISTORY: Screening Mammogram COMPARISON: Priors dating back to 2014 TECHNIQUE: 2D and 3D mammogram imaging of both breasts was performed. RESULT: DENSITY: There are scattered areas of fibroglandular density. There is no suspicious mass, asymmetry, architectural distortion, or calcification. No significant change since the prior mammograms. IMPRESSION: BIRADS 1 : NEGATIVE, NORMAL INTERVAL FOLLOW UP FOLLOW-UP: 12 months DENSITY: Scattered MAMMOGRAPHY IS VERY IMPORTANT TO YOUR HEALTH. THE CURRENT [place] [employer] GUIDELINES RECOMMENDS ANNUAL MAMMOGRAPHY BEGINNING AT AGE 40 THIS FACILITY USES A REMINDER SYSTEM TO ENSURE ALL PATIENTS RECEIVE REMINDER NOTIFICATIONS AT THE APPROPRIATE TIME BASED ON THE RECOMMENDATIONS OF THIS EXAM. Board Certified Radiologist. Accredited by the ACR and FDA. Report reported and signed by Stevenson Nick on 04/27/2022 1048 Normal [facility] Provider Letter FTon 10-26 Provider Letter [facility] [place] October 26, 2021 ESPERANZA BOYLE [address] [place] [id number] ESPERANZA BOYLE 1970 Dear Esperanza , We have been trying to reach you with no success. It is important that you return our call upon receiving this letter. Also, at the time of your call, please provide us with your current information. Thank you for your prompt attention to this matter. Sincerely, [facility] Physician Referralon 022 Physician Referral [phone] [id number] [facility] GLYCOHEMOGLOBIN A1Con 2017 Glucose mass conc 131 mg/dL Normal [facility] Comment on above: Performed By: #### A 1C ####[facility] [id number] [place], [place] [address]OzooxjKarly Tsang Hemoglobin A1c/Hemoglobin.total mass fraction (Bld) 6.2 % Critically high <=6.0 [facility] Comment on above: Performed By: #### A 1C ####[facility] [id number] [place], [place] [address]Vkeyau Trinh Encounters Encounter Date Encounter Type Care Provider Facility Start: 07-27-2023 End: 07-27-2023 ambulatory Outreach Community Facility:[facility] Start: 07-27-2023 End: 07-27-2023 ambulatory MD Arley Adams Work Phone: [facility] Work Phone: Start: 07-27-2023 End: 07-27-2023 Departed Referred MD Arley Adams Work Phone: [facility]-Community Outreach Work Phone: Start: 06-06-2023 End: 06-07-2023 ambulatory LALITA ROSS Not Available Start: 04-25-2023 End: 04-25-2023 ambulatory LALITAKORINA RUIZKES Not Available Start: 08-25-2022 End: 08-25-2022 ambulatory Outreach Community Facility:[facility] Start: 08-25-2022 End: 08-25-2022 ambulatory MD Arley Adams Work Phone: [facility] Work Phone: Start: 08-25-2022 End: 08-25-2022 Departed Referred MD Arley Adams Work Phone: [facility] Outreach Work Phone: Start: 09-09-2017 End: 09-10-2017 Ambulatory ARLEY ADAMS Facility:H1 Payers Date Payer Category Payer Self-pay [id number] 2020 Unknown [id number] 1970 Unknown [id number] 1970 Unknown [id number] 1961 Self-pay [id number] Private Health Insurance [facility] [id number] Unknown MMO [employer] [id number] Unknown [id number] Unknown [id number] Social History Date Type Detail Facility Tobacco smoking stat [facility] Unknown if ever smoked [facility] Work Phone: Start: 1970 Sex Assigned At Female F [facility] Evaluation note Note Date & Type Note Facility Evaluation note No assessment information availa ble [facility] Work Phone: Summary Purpose Family History No Family History Records FoundNo Family History Records FoundNo Family History Records FoundNo Family History Records FoundNo Family History Records Found Advance Directives No Advanced Directives Records Found Advance Directive Response Recorded Date/ Time Advance Directives No March 27, 2018 1:47pm Advance Directive Response Recorded Date/ Time Advance Directives No March 27, 2018 12:47pm Chief Complaint and Reason for Visit Chief Complaint Complete A1C TSH Chief Complaint Complete TSH Additional Source Comments INFORMATION SOURCE (unrecogn ized section and content) DATE CREATED AUTHOR 11/28/2017 [facility] DATE CREATED AUTHOR AUTHOR'S ORGANIZ ATION 10/28/2021 [facility] DATE CREATED AUTHOR AUTHOR'S ORGANIZ ATION 04/28/2022 [facility] dical Specialist DATE CREATED AUTHOR AUTHOR'S ORGANIZ ATION 06/10/2023 [facility] EPIC DATE CREATED AUTHOR AUTHOR'S ORGANIZ ATION 07/28/2023 [facility] Care Teams (unrecognized sec tion and content) Team Status: Active Member Role Status Dates Arley Adams MD Primary Care Provider Active Team Status: Inactive Member Role Status Dates Arley Adams MD Primary Care Provider Active Outreach Community Attending Provider Active Team Status: Inactive Member Role Status Dates Arley Adams MD Primary Care Provider Active Start: July 27, 2023 End: July 27, 2023 Outreach Community Attending Provider Active Sta rt: July 27, 2023 End: July 27, 2023 Goals (unrecognized section and content) Goals may be documented in a n alternate sectionGoals may be documented in an alternate section FOR RECORDS PERTAINING TO PATIENTS WHO ARE OR HAVE BEEN ENROLLED IN A CHEMICAL DEPENDENCY/SUBSTANCEABUSE PROGRAM, SOME INFORMATION MAY BE OMITTED. This clinical summary was aggregated from multiple sources. Caution should be exercised in using it in the provision of clinical care. This summary normalizes information from multiple sources, and as a consequence, information in this document may materially change the coding, format and clinical context of patient data. In addition, data may be omitted in some cases. CLINICAL DECISIONS SHOULD BE BASED ON THE PRIMARY CLINICAL RECORDS. [facility]. provides no warranty or guarantee of the accuracy or completeness of information in this document.
[2024-02-18 07:54] LABS: Basophils Absolute Auto 0.1 10^3/uL (0.0-0.1); Basophils Percent Auto 0.6 % (0.2-2.0); Eosinophils Absolute Auto 0.1 10^3/uL (0.0-0.7); Eosinophils Percent Auto 1.7 % (0.9-7.0); Hematocrit 42.4 % (36.0-48.0); Hemoglobin 13.7 g/dL (12.0-16.0); Immature Granulocytes Abs Auto 0.03 10^3/uL (0.00-0.03); Immature Granulocytes Pct Auto 0.4 % (0.0-0.5); Lymphocytes Absolute Auto 2.1 10^3/uL (1.2-3.8); Lymphocytes Percent Auto 27.1 % (20.5-60.0); Mean Corpuscular HGB Conc 32.3 g/dL (29.9-35.2); Mean Corpuscular Hemoglobin 32.1 pg (26.7-34.0); Mean Corpuscular Volume 99.3 fL (81.0-99.0); Mean Platelet Volume 10.9 fL (9.5-13.5); Monocytes Absolute Auto 0.6 10^3/uL (0.3-0.8); Monocytes Percent Auto 7.8 % (1.7-12.0); Neutrophils Absolute Auto 4.8 10^3/uL (1.4-6.5); Neutrophils Percent Auto 62.4 % (43.0-75.0); Platelet Count 214 10^3/uL (150-450); Red Blood Count 4.27 10^6/uL (4.20-5.40); Red Cell Distribution Width 13.1 % (11.0-15.0); White Blood Count 7.7 10^3/uL (4.0-11.0)
[2024-02-18 08:02] LABS: INR 1.03; Partial Thromboplastin Time 26.6 sec (22.3-36.2); Prothrombin Time 10.9 sec (9.0-11.6)
== END 2024-02-18 07:10 | disposition home or self-care (01) ==
LOC: LAB 07:10
PROVIDERS: PCP Family Medicine; Visit Provider Family Medicine
DX: K62.5 Hemorrhage of anus and rectum (principal)
CPT/HCPCS: 36415; 85025; 85610; 85730

== ENCOUNTER 2024-03-26 09:38 | Outpatient (OUT) | payer OTHER, SELFPAY ==
--- OUTSIDE RECORDS SUMMARY | 2024-03-26 09:46 | XMS_ITS | CCD ---
Author Organization [facility] ion Partnership [facility] Care Team Providers Care Meter Maker Name Role Phone ARLEY MCKAY Unavailable Unavailable ARLEY MCKAY Unavailable Unavailable ARLEY MCKAY Unavailable Unavailable MD Arley Mckay Primary Care Provider [phone] Community, Outreach Attending Provider [phone] LALITA ROSS Referring Unavailable LALITA ROSS Attending Unavailable LALITA ROSS Referring Unavailable MD Arley Mckay Primary Care Provider [phone] Community, Outreach Attending Provider Community, Outreach Attending Unavailable Arley Mckay Primary Care Unavailable Community, Outreach Admitting Unavailable Community, Outreach Attending Unavailable Arley Mckay Primary Care Unavailable Community, Outreach Admitting Unavailable Vamsi MARTINEZ Attending Unavailable Arley Mckay Referring Unavailable Arley Mckay Primary Care Physician Allergies Allergy Classification Reported Allergen(s) Allergy Type Date of Onset Reaction(s) Facility (2 sources) Sulfonamides (Antibiotic); Translations: [sulfa drugs] Propensity to adverse reactions (disorder) Patient reported problems (finding) [facility] Repository Medications Current Medications Medication Drug Class(es) Dates Sig (Normalized) Sig (Original) aspirin 81 mg chewable tablet (1 source) Platelet Aggregation Inhibitor, Nonsteroidal Anti-inflammatory Drug Start: 03-06-2024 aspirin 81 mg Chew Tab 81 mg = 1 tab(s), Chewed, Daily, Refills(s) 0 Start Date: 03/06/24 Status: Ordered atorvastatin 20 mg oral tablet (1 source) HMG-CoA Reductase Inhibitor Start: 03-06-2024 take 1 tablet by mouth once daily atorvastatin 20 mg Tab 20 mg = 1 tab(s), Oral, Daily, Refills(s) 0 Start Date: 03/06/24 Status: Ordered carvedilol 12.5 mg oral tablet (1 source) alpha-Adrenergic Radha, beta-Adrenergic Radha Start: 03-06-2024 take 1 tablet by mouth twice daily Coreg 12.5 mg Tab 12.5 mg = 1 tab(s), Oral, BID, Refills(s) 0 Start Date: 03/06/24 Status: Ordered cetirizine hydrochloride 10 mg oral tablet (1 source) Histamine-1 Receptor Antagonist Start: 03-06-2024 take 1 tablet by mouth once daily cetirizine 10 mg Tab 10 mg = 1 tab(s), Oral, Daily, Refills(s) 0 Start Date: 03/06/24 Status: Ordered 0.5 ML dulaglutide 9 MG/ML Auto-Injector [Trulicity] (1 source) GLP-1 Receptor Agonist Start: 03-17-2024 inject 4.5 mg by subcutaneous injection every week Trulicity Pen 4.5 mg/0.5 mL subcutaneous solution 4.5 mg, SubCutaneous, qWeek, Refills(s) 0 Start Date: 03/17/24 Status: Ordered irbesartan 150 mg oral tablet (1 source) Angiotensin 2 Receptor Radha Start: 03-06-2024 take 1 tablet by mouth once daily irbesartan 150 mg Tab 150 mg = 1 tab(s), Oral, Daily, Refills(s) 0 Start Date: 03/06/24 Status: Ordered levothyroxine sodium 0.1 mg oral tablet (1 source) l-Thyroxine Start: 03-06-2024 take 1 tablet by mouth once daily Synthroid 100 mcg Tab 100 mcg = 1 tab(s), Oral, Daily, Refills(s) 0 Start Date: 03/06/24 Status: Ordered metFORMIN hydrochloride 500 mg oral tablet (1 source) Biguanide Start: 03-06-2024 take 1 tablet by mouth once daily metformin 500 mg Tab 500 mg = 1 tab(s), Oral, Daily, Refills(s) 0 Start Date: 03/06/24 Status: Ordered Multi Vitamins oral tablet (1 source) Start: 03-06-2024 take 1 tablet by mouth once daily Multi Vitamins oral tablet 1 tab(s), Oral, Daily, Refill(s) 0 Start Date: 03/06/24 Status: Ordered omeprazole 40 mg delayed release oral capsule (1 source) Proton Pump Inhibitor Start: 03-06-2024 take 1 capsule by mouth once daily omeprazole 40 mg Cap-DR 40 mg = 1 cap(s), Oral, Daily, Refills(s) 0 Start Date: 03/06/24 Status: Ordered Problems Problem Classification Problem Date Documented Da te Episodic/Chronic Allergic reactions (1 source) Eczema 03-06-2024 Episodic Diabetes mellitus without complication (1 source) Diabetes mellitus 03-06-2024 Chronic Esophageal disorders (1 source) Gastroesophageal reflux disease 03-06-2024 Chronic Essential hypertension (1 source) Hypertensive disorder 03-06-2024 Chronic Other gastrointestinal disorders (1 source) Abnormal feces; Translations: [Other fecal abnormalities] Onset: 4 Episodic Other gastrointestinal disorders (2 sources) Occult blood in stools 03-06-2024 Episodic Other nutritional; endocrine; and metabolic disorders (1 source) Body mass index 40+ - severely obese 03-06-2024 Chronic Other nutritional; endocrine; and metabolic disorders (1 source) Obese class III 03-06-2024 Chronic Other screening for suspected conditions (not mental disorders or infectious disease) (2 sources) Imaging of abdomen abnormal; Translations: [Abnormal findings on diagnostic imaging of other abdominal regions, including retroperitoneum] Onset: 4 Episodic Other upper respiratory disease (1 source) Allergic rhinitis 03-06-2024 Chronic Thyroid disorders (1 source) Hypothyroidism 03-06-2024 Chronic Varicose veins of lower extremity (1 source) 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 Results Test Name Value Interpretation Reference Range Facility Ambulatory Visit Summaryon 1 Ambulatory Visit Summary Ambulatory Visit Summary ESPERANZA BOYLE :1970 Visit Date:03/17/2024 Ambulatory Visit Instructions Your Diagnosis Positive fecal occult blood test Abnormal abdominal CT scan Your Care Team Attending Physician - MICHELLE RAMOS, Vamsi Eubanks Primary Care Physician - Bryan RAMOS, Arley Referring Physician - Bryan RAMOS, Arley This Is Your Medications List Contact prescribing physician if questions or concerns aspirin (aspirin 81 mg Chew Tab) atorvastatin (atorvastatin 20 mg Tab) carvedilol (Coreg 12.5 mg Tab) cetirizine (cetirizine 10 mg Tab) dulaglutide (Trulicity Pen 4.5 mg/0.5 mL subcutaneous solution) irbesartan (irbesartan 150 mg Tab) levothyroxine (Synthroid 100 mcg Tab) metformin (metformin 500 mg Tab) multivitamin (Multi Vitamins oral tablet) omeprazole (omeprazole 40 mg Cap-DR) Procedures Performed section, Dilation and curettage, Tonsillectomy. Discharge Vitals Heart Rate (Peripheral) 76 Respiratory Rate 16 Blood Pressure 132/100 Height 157.4 cm Height 62 in Weight 120 kg Weight 264 lb BMI 48.44 Medications What How Much When Instructions Unchanged aspirin (aspirin 81 mg Chew Tab) 1 Tablets Chewed Every day Contact prescribing physician if questions or concerns Unchanged atorvastatin (atorvastatin 20 mg Tab) 1 Tablets By Mouth Every day Contact prescribing physician if questions or concerns Unchanged carvedilol (Coreg 12.5 mg Tab) 1 Tablets By Mouth 2 times a day Contact prescribing physician if questions or concerns Unchanged cetirizine (cetirizine 10 mg Tab) 1 Tablets By Mouth Every day Contact prescribing physician if questions or concerns Unchanged dulaglutide (Trulicity Pen 4.5 mg/ 0.5 mL subcutaneous solution) 4.5 Milligram Subcutaneous Every week Contact prescribing physician if questions or concerns Unchanged irbesartan (irbesartan 150 mg Tab) 1 Tablets By Mouth Every day Contact prescribing physician if questions or concerns Unchanged levothyroxine (Synthroid 100 mcg Tab) 1 Tablets By Mouth Every day Contact prescribing physician if questions or concerns Unchanged metformin (metformin 500 mg Tab) 1 Tablets By Mouth Every day Contact prescribing physician if questions or concerns Unchanged multivitamin (Multi Vitamins oral tablet) 1 Tablets By Mouth Every day Contact prescribing physician if questions or concerns Unchanged omeprazole (omeprazole 40 mg Cap-DR) 1 Capsules By Mouth Every day Contact prescribing physician if questions or concerns Allergies sulfa drugs (Patient reported problems) Problems Ongoing - Any problem that you are currently receiving treatment for. Abnormal abdominal CT scan Allergic rhinitis BMI 45.0-49.9, adult Class 3 obesity Diabetes Eczema Gastroesophageal reflux disease Hypertension Hypothyroidism Positive fecal occult blood test Positive occult stool blood test Varicose vein of lower limb with phlebitis Patient Survey You may receive a survey via text or e-mail asking about your office visit. Please share your experience with us by completing your survey. We appreciate your feedback and thank you for choosing us for your care. Normal [facility] Alanine aminotransferase [En zymatic activity/volume] in Serum or PlasmaOrdered By: OUTREACH COMMUNITY on 07-27-2023 ALT [Catalytic activity/Vol] 16 U/L 7-52 [facility] Albumin [Mass/volume] in Ser um or Plasma by Bromocresol green (BCG) dye binding methoOrdered By: OUTREACH COMMUNITY on 07-27-2023 Albumin BCG dye [Mass/Vol] 4.1 g/dL 3.5-5.7 [facility] Alkaline phosphatase [Enzyma tic activity/volume] in Serum or PlasmaOrdered By: OUTREACH COMMUNITY on 07-27-2023 ALP [Catalytic activity/Vol] 152 U/L 34-104 [facility] Aspartate aminotransferase [ Enzymatic activity/volume] in Serum or PlasmaOrdered By: OUTREACH COMMUNITY on 07-27-2023 AST [Catalytic activity/Vol] 19 U/L 13-39 [facility] Bilirubin.total [Mass/volume ] in Serum or PlasmaOrdered By: OUTREACH COMMUNITY on 07-27-2023 Bilirubin [Mass/Vol] 0.6 mg/dL 0.3-1.0 [facility] CBC Without Differentialon 0 07-27-2023 Erythrocyte distribution width (RBC) [Ratio] 13.8 % Normal 11.9-15.3 [facility] Comment on above: Performed By: #### O UTREACH TSH, OUTREACH LIPID, CBCNOOUTREACH, OUTREACH CMP #### [facility] [address] Hematocrit (Bld) [Volume fraction] 43.8 % Normal 34.0-46.4 [facility] Comment on above: Performed By: #### O UTREACH TSH, OUTREACH LIPID, CBCNOOUTREACH, OUTREACH CMP #### [facility] [address] [place] [id number] [place] Hemoglobin (Bld) [Mass/Vol] 14.8 g/dL Normal 11.8-15.4 [facility] Comment on above: Performed By: #### O UTREACH TSH, OUTREACH LIPID, CBCNOOUTREACH, OUTREACH CMP #### [facility] [address] [place] [id number] [place] MCH (RBC) [Entitic mass] 31.9 pg Normal 24.7-34.3 [facility] Comment on above: Performed By: #### O UTREACH TSH, OUTREACH LIPID, CBCNOOUTREACH, OUTREACH CMP #### [address] MCV (RBC) [Entitic vol] 94.6 fL Normal 80-100 [facility] Comment on above: Performed By: #### O UTREACH TSH, OUTREACH LIPID, CBCNOOUTREACH, OUTREACH CMP #### [address] Mean Corpuscular HGB Conc 33.7 g/dL Normal 32.0-35.0 [facility] Comment on above: Performed By: #### O UTREACH TSH, OUTREACH LIPID, CBCNOOUTREACH, OUTREACH CMP #### [address] Platelet mean volume (Bld) [Entitic vol] 9.2 fL Normal 6.3-10.7 [facility] Comment on above: Result Comment: PERF ORMED BY: [place] [address] PATHOLOGIST DIRECTOR OF STRATEGIC PARTNERSHIPS ANTOINE CISNEROS M.D. Performed By: #### O UTREACH TSH, OUTREACH LIPID, CBCNOOUTREACH, OUTREACH CMP #### [place] [address] [place] Platelets (Bld) [#/Vol] 281 10*3/uL Normal 150-450 [facility] Comment on above: Performed By: #### O UTREACH TSH, OUTREACH LIPID, CBCNOOUTREACH, OUTREACH CMP #### [place] [address] [place] RBC (Bld) [#/Vol] 4.63 10*6/uL Normal 3.60-5.00 [facility] Comment on above: Performed By: #### O UTREACH TSH, OUTREACH LIPID, CBCNOOUTREACH, OUTREACH CMP #### [place] [address] [place] WBC (Bld) [#/Vol] 9.6 10*3/uL Normal 3.8-11.6 [facility] Comment on above: Performed By: #### O UTREACH TSH, OUTREACH LIPID, CBCNOOUTREACH, OUTREACH CMP #### [facility] [address] CMP Outreachon 07-27-2023 Albumin [Mass/Vol] 4.1 g/dL Normal 3.5-5.7 [facility] Comment on above: Performed By: #### O UTREACH TSH, OUTREACH LIPID, CBCNOOUTREACH, OUTREACH CMP #### [facility] [address] [place] [address] ALP [Catalytic activity/Vol] 152 U/L High 34-104 [facility] Comment on above: Performed By: #### O UTREACH TSH, OUTREACH LIPID, CBCNOOUTREACH, OUTREACH CMP #### [facility] [address] [place] [address] ALT [Catalytic activity/Vol] 16 U/L Normal 7-52 [facility] Comment on above: Performed By: #### O UTREACH TSH, OUTREACH LIPID, CBCNOOUTREACH, OUTREACH CMP #### [facility] [address] [place] [address] Anion gap [Moles/Vol] 8.6 mmol/L Normal 6.0-15.[address] [facility] Comment on above: Performed By: #### O UTREACH TSH, OUTREACH LIPID, CBCNOOUTREACH, OUTREACH CMP #### [facility] [address] [place] [address] AST [Catalytic activity/Vol] 19 U/L Normal 13-39 [facility] Comment on above: Performed By: #### O UTREACH TSH, OUTREACH LIPID, CBCNOOUTREACH, OUTREACH CMP #### [facility] [address] [place] [address] Bilirubin [Mass/Vol] 0.6 mg/dL Normal 0.3-1.0 [facility] Comment on above: Performed By: #### O UTREACH TSH, OUTREACH LIPID, CBCNOOUTREACH, OUTREACH CMP #### [facility] [address] [place] [address] [place] Calcium [Mass/Vol] 9.7 mg/dL Normal 8.6-10.3 [facility] Comment on above: Performed By: #### O UTREACH TSH, OUTREACH LIPID, CBCNOOUTREACH, OUTREACH CMP #### [facility] [address] [place] [address] [place] Chloride [Moles/Vol] 106 mmol/L Normal 98-107 [facility] Comment on above: Performed By: #### O UTREACH TSH, OUTREACH LIPID, CBCNOOUTREACH, OUTREACH CMP #### [facility] [address] [place] [address] [place] CO2 [Moles/Vol] 31.2 mmol/L High 21.0-31.0 [facility] Comment on above: Performed By: #### O UTREACH TSH, OUTREACH LIPID, CBCNOOUTREACH, OUTREACH CMP #### [facility] [address] [place] [address] [place] Creatinine [Mass/Vol] 0.73 mg/dL Normal 0.60-1.[address] [facility] Comment on above: Performed By: #### O UTREACH TSH, OUTREACH LIPID, CBCNOOUTREACH, OUTREACH CMP #### [facility] [address] [place] [id number] [place] GFR/1.73 sq M.predicted MDRD (S/P/Bld) [Vol rate/Area] mL/min/{1.73_m2} [facility] Comment on above: Performed By: #### O UTREACH TSH, OUTREACH LIPID, CBCNOOUTREACH, OUTREACH CMP #### [facility] [address] [place] [phone] [place] Glucose [Mass/Vol] 105 mg/dL High 70-100 [facility] Comment on above: Result Comment: [place] Glucose Reference Range is dependent on time and content of last meal. Glucose of more than 200 mg/dL in a nonstressed, ambulatory subject supports the diagnosis of Diabetes Mellitus. ADA recommended reference range Performed By: #### O UTREACH TSH, OUTREACH LIPID, CBCNOOUTREACH, OUTREACH CMP #### [facility] [address] Potassium [Moles/Vol] 4.8 mmol/L Normal 3.5-5.[address] [facility] Comment on above: Performed By: #### O UTREACH TSH, OUTREACH LIPID, CBCNOOUTREACH, OUTREACH CMP #### [facility] [address] [place] [address] [place] Protein [Mass/Vol] 6.3 g/dL Low 6.4-8.9 [facility] Comment on above: Performed By: #### O UTREACH TSH, OUTREACH LIPID, CBCNOOUTREACH, OUTREACH CMP #### [facility] [address] Sodium [Moles/Vol] 141 mmol/L Normal 136-145 [facility] Comment on above: Performed By: #### O UTREACH TSH, OUTREACH LIPID, CBCNOOUTREACH, OUTREACH CMP #### [facility] [address] Urea nitrogen [Mass/Vol] 13 mg/dL Normal 7-25 [facility] Comment on above: Performed By: #### O UTREACH TSH, OUTREACH LIPID, CBCNOOUTREACH, OUTREACH CMP #### [facility] [address] Calcium [Mass/volume] in Ser um or PlasmaOrdered By: OUTREACH COMMUNITY on 07-27-2023 Calcium [Mass/Vol] 9.7 mg/dL 8.6-10.3 [facility] Carbon dioxide, total [Moles /volume] in Serum or PlasmaOrdered By: OUTREACH COMMUNITY on 07-27-2023 CO2 [Moles/Vol] 31.2 mmol/L 21.0-31.0 [facility] Chloride [Moles/volume] in S nazanin or PlasmaOrdered By: OUTREACH COMMUNITY on 07-27-2023 Chloride [Moles/Vol] 106 mmol/L 98-107 [facility] Cholesterol [Mass/volume] in Serum or PlasmaOrdered By: OUTREACH COMMUNITY on 07-27-2023 Cholesterol [Mass/Vol] 136 mg/dL 140-200 [facility] Comment on above: Chol less than 200 m g/dl low riskChol 201-239 mg/dl borderline riskChol 240 mg/dl and greater high risk Cholesterol in LDL Calc [Mas s/Vol]Ordered By: [facility] on 07-27-2023 Cholesterol in LDL [Mass/Vol] 80 mg/dL 0-100 [facility] Comment on above: LDL ATP III CLASSIFI CATIONLDL less than 100 mg/dL OptimalLDL 100-129 mg/dL Near or above optimalLDL 130-159 mg/dL Borderline highLDL 160-189 mg/dL HighLDL greater than 189 mg/dL Very high Cholesterol in VLDL Calc [Ma ss/Vol]Ordered By: OUTREACH [facility] on 07-27-2023 Cholesterol in VLDL [Mass/Vol] 15 mg/dL [facility] Creatinine [Mass/volume] in Serum or PlasmaOrdered By: [facility] on 07-27-2023 Creatinine [Mass/Vol] 0.73 mg/dL 0.60-1.[address] [facility] Erythrocyte distribution wid th Auto (RBC) [Ratio]Ordered By: [facility] on 07-27-2023 Erythrocyte distribution width (RBC) [Ratio] 13.8 % 11.9-15.3 [facility] Glucose [Mass/volume] in Ser um or PlasmaOrdered By: [facility] on 07-27-2023 Glucose [Mass/Vol] 105 mg/dL 70-100 [facility] Comment on above: ADA recommended refe rence rangeRandom Glucose Reference Range is dependent on time and content of last meal. Glucose of more than 200 mg/dL in a nonstressed, ambulatory subject supports the diagnosis of Diabetes Mellitus. Hematocrit Auto (Bld) [Volum e fraction]Ordered By: [facility] on 07-27-2023 Hematocrit (Bld) [Volume fraction] 43.8 % 34.0-46.4 [facility] Hemoglobin [Mass/volume] in BloodOrdered By: [facility] on 07-27-2023 Hemoglobin (Bld) [Mass/Vol] 14.8 g/dL 11.8-15.4 [facility] Leukocytes [#/volume] correc alison for nucleated erythrocytes in Blood by Automated counOrdered By: [facility] on 07-27-2023 WBC corrected for nucl RBC Auto (Bld) [#/Vol] 9.6 10*3/uL 3.8-11.6 [facility] Lipid Profile Outreachon Cholesterol [Mass/Vol] 136 mg/dL Low 140-200 [facility] Comment on above: Result Comment: Chol less than 200 mg/dl low risk Chol 201-239 mg/dl borderline risk Chol 240 mg/dl and greater high risk Performed By: #### O UTREACH TSH, OUTREACH LIPID, CBCNOOUTREACH, OUTREACH CMP #### [facility] [address] [place] [id number] [place] Cholesterol in HDL [Mass/Vol] 41 mg/dL Normal 23-92 [facility] Comment on above: Result Comment: HDL CHOL ATP-III CLASSIFICATION Cardiovascular Risk HDL > or equal to 60 mg/dL LOW HDL < 40 mg/dL HIGH Performed By: #### O UTREACH TSH, OUTREACH LIPID, CBCNOOUTREACH, OUTREACH CMP #### [facility] [address] [place] [id number] [place] Cholesterol.total/Samira sterol in HDL [Mass ratio] 3.3 {ratio} Normal <5.0 [facility] Comment on above: Performed By: #### O UTREACH TSH, OUTREACH LIPID, CBCNOOUTREACH, OUTREACH CMP #### [facility] [address] [place] [address] [place] LDL Cholesterol,Calculated 80 mg/dL Normal 0-100 [facility] Comment on above: Result Comment: LDL ATP III CLASSIFICATION LDL less than 100 mg/dL Optimal LDL 100-129 mg/dL Near or above optimal LDL 130-159 mg/dL Borderline high LDL 160-189 mg/dL High LDL greater than 189 mg/dL Very high Performed By: #### O UTREACH TSH, OUTREACH LIPID, CBCNOOUTREACH, OUTREACH CMP #### [facility] [address] [place] [id number] [place] Triglyceride w/Reflex 77 mg/dL Normal 0-[address] [facility] Comment on above: Result Comment: TRIG ATP III CLASSIFICATION TRIG less than 150 mg/dL Normal TRIG 150-199 mg/dL Borderline high TRIG 200-500 mg/dL High TRIG greater than 500 mg/dL Very high Standard traceable to the [place] for Disease Conrtrol and Prevention (CDC) test method. Performed By: #### [facility] T[facility], OUTREACH LIPID, CBCNOOUTREACH, OUTREACH CMP #### [facility] [address] VLDL CHOLESTEROL 15 mg/dL Normal [facility] Comment on above: Performed By: #### O [facility] TSH, OUTREACH LIPID, CBCNOOUTREACH, OUTREACH CMP #### [facility] [address] MCH Auto (RBC) [Entitic mass ]Ordered By: [facility] on 07-27-2023 MCH (RBC) [Entitic mass] 31.9 pg 24.7-34.3 [facility] MCHC Auto (RBC) [Mass/Vol]Or dered By: OUTREACH [facility] on 07-27-2023 MCHC (RBC) [Mass/Vol] 33.7 g/dL 32.0-35.[address] [facility] MCV Auto (RBC) [Entitic vol] Ordered By: [facility] on 07-27-2023 MCV (RBC) [Entitic vol] 94.6 fL 80-100 [facility] No Panel InformationOrdered By: [facility] on 07-27-2023 Estimated GFR (CKD-EPI) > 60.0 mL/Min [facility] Creatinine Clearance (Chem N/A [facility] Platelet mean volume Auto (B ld) [Entitic vol]Ordered By: [facility] on 07-27-2023 Platelet mean volume (Bld) [Entitic vol] 9.2 fL 6.3-10.7 [facility] Platelets Auto (Bld) [#/Vol] Ordered By: [facility] on 07-27-2023 Platelets (Bld) [#/Vol] 281 10*3/uL 150-450 [facility] Potassium [Moles/volume] in Serum or PlasmaOrdered By: OUTREACH [facility] on 07-27-2023 Potassium [Moles/Vol] 4.8 mmol/L 3.5-5.[address] [facility] Protein [Mass/volume] in Ser um or PlasmaOrdered By: OUTREACH [facility] on 07-27-2023 Protein [Mass/Vol] 6.3 g/dL 6.4-8.9 [facility] RBC Auto (Bld) [#/Vol]Ordere d By: OUTREACH COMMUNITY on 07-27-2023 RBC (Bld) [#/Vol] 4.63 10*6/uL 3.60-5.00 [facility] Serum or plasma anion gap de terminationOrdered By: OUTREACH COMMUNITY on 07-27-2023 Anion gap [Moles/Vol] 8.6 mmol/L 6.0-15.[address] [facility] Serum or plasma high density lipoprotein (HDL) cholesterol measurementOrdered By: OUTREACH COMMUNITY on 07-27-2023 Cholesterol in HDL [Mass/Vol] 41 mg/dL 23-92 [facility] Comment on above: HDL CHOL ATP-III CLA SSIFICATION Cardiovascular RiskHDL > or equal to 60 mg/dL LOWHDL < 40 mg/dL HIGH Serum or plasma total choles terol/high density lipoprotein (HDL) cholesterol mass ratOrdered By: OUTREACH COMMUNITY on 07-27-2023 Cholesterol.total/Samira sterol in HDL [Mass ratio] 3.3 {ratio} <5.0 [facility] Sodium [Moles/volume] in Ser um or PlasmaOrdered By: OUTREACH COMMUNITY on 07-27-2023 Sodium [Moles/Vol] 141 mmol/L 136-145 [facility] Thyroid Stimulating Hormoneo n 07-27-2023 TSH Qn 1.87 m[IU]/L Normal 0.45-5.33 [facility] Comment on above: Result Comment: PERF ORMED BY: [place] [address] PATHOLOGIST DIRECTOR OF STRATEGIC PARTNERSHIPS ANTOINE CISNEROS M.D. Performed By: #### O [facility] TSH, OUTREACH LIPID, CBCNOOUTREACH, OUTREACH CMP #### [address] Thyrotropin [Units/volume] i n Serum or PlasmaOrdered By: OUTREACH COMMUNITY on 07-27-2023 TSH Qn 1.87 m[IU]/L 0.45-5.33 [facility] Triglyceride [Mass/volume] i n Serum or PlasmaOrdered By: OUTREACH COMMUNITY on 07-27-2023 Triglyceride [Mass/Vol] 77 mg/dL 0-149 [facility] Comment on above: TRIG ATP III CLASSIF ICATIONTRIG less than 150 mg/dL NormalTRIG 150-199 mg/dL Borderline highTRIG 200-500 mg/dL High TRIG greater than 500 mg/dL Very highStandard traceable to the Center for Disease Conrtrol and Prevention (CDC) test method. Urea nitrogen [Mass/volume] in Serum or PlasmaOrdered By: [facility] on 07-27-2023 Urea nitrogen [Mass/Vol] 13 mg/dL 01-01 [facility] BI MAMMOGRAM SCREENING TOMOS YNTHESIS BILATERALon 04-25-2023 [...] IS VERY IMPORTANT TO YOUR HEALTH. THE [employer] GUIDELINES RECOMMEND THAT WOMEN 40 [...] zymatic activity/volume] in Serum or PlasmaOrdered By: [facility] on 08-25-2022 ALT [Catalytic activity/Vol] 15 U/L Normal [facility] Comment on above: Performed By: #### C BCNOOUTREACH, OUTREACH GLYCO, OUTREACH CMP, OUTREACH LIPID, OUTREACH TSH #### [facility] [address] [place] [address] [place] Albumin [Mass/volume] in Ser um or Plasma by Bromocresol green (BCG) dye binding methoOrdered By: OUTREACH COMMUNITY on 08-25-2022 Albumin BCG dye [Mass/Vol] 4.4 g/dL 3.5-5.7 [facility] Alkaline phosphatase [Enzyma tic activity/volume] in Serum or PlasmaOrdered By: OUTREACH COMMUNITY on 08-25-2022 ALP [Catalytic activity/Vol] 145 U/L High 34-104 [facility] Comment on above: Performed By: #### C BCNOOUTREACH, OUTREACH GLYCO, OUTREACH CMP, OUTREACH LIPID, OUTREACH TSH #### [address] Aspartate aminotransferase [ Enzymatic activity/volume] in Serum or PlasmaOrdered By: OUTREACH COMMUNITY on 08-25-2022 AST [Catalytic activity/Vol] 20 U/L Normal 13-39 [facility] Comment on above: Performed By: #### C BCNOOUTREACH, OUTREACH GLYCO, OUTREACH CMP, OUTREACH LIPID, OUTREACH TSH #### [facility] [address] Bilirubin.total [Mass/volume ] in Serum or PlasmaOrdered By: OUTREACH COMMUNITY on 08-25-2022 Bilirubin [Mass/Vol] 0.7 mg/dL Normal 0.3-1.0 [facility] Comment on above: Performed By: #### C BCNOOUTREACH, OUTREACH GLYCO, OUTREACH CMP, OUTREACH LIPID, OUTREACH TSH #### [facility] [address] [place] [address] [place] CBC Without Differentialon 0 08-25-2022 Mean Corpuscular HGB Conc 33.3 g/dL Normal 32.0-35.0 [facility] Comment on above: Performed By: #### C BCNOOUTREACH, OUTREACH GLYCO, OUTREACH CMP, OUTREACH LIPID, OUTREACH TSH #### [facility] [address] [place] [address] [place] WBC (Bld) [#/Vol] 6.9 10*3/uL Normal 3.8-11.6 [facility] Comment on above: Performed By: #### C BCNOOUTREACH, OUTREACH GLYCO, OUTREACH CMP, OUTREACH LIPID, OUTREACH TSH #### [facility] [address] [place] [id number] [place] CMP Outreachon 08-25-2022 Albumin [Mass/Vol] 4.4 g/dL Normal 3.5-5.7 [facility] Comment on above: Performed By: #### C BCNOOUTREACH, OUTREACH GLYCO, OUTREACH CMP, OUTREACH LIPID, OUTREACH TSH #### [facility] [address] CMP OutreachOrdered By: OUTR EACH COMMUNITY on 08-25-2022 GFR/1.73 sq M.predicted MDRD (S/P/Bld) [Vol rate/Area] mL/min/{1.73_m2} Normal [facility] Comment on above: Performed By: #### C BCNOOUTREACH, OUTREACH GLYCO, OUTREACH CMP, OUTREACH LIPID, OUTREACH TSH #### [facility] [address] [place] [address] [place] Calcium [Mass/volume] in Ser um or PlasmaOrdered By: OUTREACH COMMUNITY on 08-25-2022 Calcium [Mass/Vol] 10.3 mg/dL Normal 8.6-10.3 [facility] Comment on above: Performed By: #### C BCNOOUTREACH, OUTREACH GLYCO, OUTREACH CMP, OUTREACH LIPID, OUTREACH TSH #### [facility] [address] [place] [id number] [place] Carbon dioxide, total [Moles /volume] in Serum or PlasmaOrdered By: OUTREACH COMMUNITY on 08-25-2022 CO2 [Moles/Vol] 28.3 mmol/L Normal 21.0-31.0 [facility] Comment on above: Performed By: #### C BCNOOUTREACH, OUTREACH GLYCO, OUTREACH CMP, OUTREACH LIPID, OUTREACH TSH #### [facility] [address] [place] [address] [place] Chloride [Moles/volume] in S nazanin or PlasmaOrdered By: OUTREACH COMMUNITY on 08-25-2022 Chloride [Moles/Vol] 106 mmol/L Normal 98-107 [facility] Comment on above: Performed By: #### C BCNOOUTREACH, OUTREACH GLYCO, OUTREACH CMP, OUTREACH LIPID, OUTREACH TSH #### [facility] [address] [place] [address] [place] Cholesterol [Mass/volume] in Serum or PlasmaOrdered By: OUTREACH COMMUNITY on 08-25-2022 Cholesterol [Mass/Vol] 133 mg/dL Low 140-200 [facility] Comment on above: Chol less than 200 m g/dl low riskChol 201-239 mg/dl borderline riskChol 240 mg/dl and greater high risk Result Comment: Chol less than 200 mg/dl low risk Chol 201-239 mg/dl borderline risk Chol 240 mg/dl and greater high risk Performed By: #### C BCNOOUTREACH, OUTREACH GLYCO, OUTREACH CMP, OUTREACH LIPID, OUTREACH TSH #### [facility] [address] [place] [id number] [facility] Cholesterol in LDL Calc [Mas s/Vol]Ordered By: OUTREACH COMMUNITY on 08-25-2022 Cholesterol in LDL [Mass/Vol] 69 mg/dL 0-100 [facility] Comment on above: LDL ATP III CLASSIFI CATIONLDL less than 100 mg/dL OptimalLDL 100-129 mg/dL Near or above optimalLDL 130-159 mg/dL Borderline highLDL 160-189 mg/dL HighLDL greater than 189 mg/dL Very high Cholesterol in VLDL Calc [Ma ss/Vol]Ordered By: OUTREACH COMMUNITY on 08-25-2022 Cholesterol in VLDL [Mass/Vol] 14 mg/dL [facility] Creatinine [Mass/volume] in Serum or PlasmaOrdered By: OUTREACH COMMUNITY on 08-25-2022 Creatinine [Mass/Vol] 0.70 mg/dL Normal 0.60-1.[address] [facility] Comment on above: Performed By: #### C BCNOOUTREACH, OUTREACH GLYCO, OUTREACH CMP, OUTREACH LIPID, OUTREACH TSH #### [facility] [address] [place] [address] [place] Erythrocyte distribution wid th [Ratio] by Automated countOrdered By: OUTREACH COMMUNITY on 08-25-2022 Erythrocyte distribution width (RBC) [Ratio] 14.2 % Normal 11.9-15.3 [facility] Comment on above: Performed By: #### C BCNOOUTREACH, OUTREACH GLYCO, OUTREACH CMP, OUTREACH LIPID, OUTREACH TSH #### [facility] [address] [place] [address] [place] Erythrocytes [#/volume] in B lood by Automated countOrdered By: [facility] on 08-25-2022 RBC (Bld) [#/Vol] 4.56 10*6/uL Normal 3.60-5.00 [facility] Comment on above: Performed By: #### C BCNOOUTREACH, OUTREACH GLYCO, OUTREACH CMP, OUTREACH LIPID, OUTREACH TSH #### [facility] [address] Glucose [Mass/volume] in Ser um or PlasmaOrdered By: [facility] on 08-25-2022 Glucose [Mass/Vol] 108 mg/dL Normal 74-109 [facility] Comment on above: ADA recommended refe rence rangeRandom Glucose Reference Range is dependent on time and content of last meal. Glucose of more than 200 mg/dL in a nonstressed, ambulatory subject supports the diagnosis of Diabetes Mellitus. Result Comment: [place] om Glucose Reference Range is dependent on time and content of last meal. Glucose of more than 200 mg/dL in a nonstressed, ambulatory subject supports the diagnosis of Diabetes Mellitus. ADA recommended reference range Performed By: #### C BCNOOUTREACH, OUTREACH GLYCO, OUTREACH CMP, OUTREACH LIPID, OUTREACH TSH #### [facility] [address] [place] [id number] [facility] Glucose mean value [Mass/vol ume] in Blood Estimated from glycated hemoglobinOrdered By: [facility] on 08-25-2022 Average glucose Estimated from glycated hemoglobin (Bld) [Mass/Vol] 128 mg/dL [facility] Hematocrit [Volume Fraction] of Blood by Automated countOrdered By: [facility] on 08-25-2022 Hematocrit (Bld) [Volume fraction] 43.9 % Normal 34.0-46.4 [facility] Comment on above: Performed By: #### C BCNOOUTREACH, OUTREACH GLYCO, OUTREACH CMP, OUTREACH LIPID, OUTREACH TSH #### [facility] [address] Hemoglobin [Mass/volume] in BloodOrdered By: [facility] on 08-25-2022 Hemoglobin (Bld) [Mass/Vol] 14.6 g/dL Normal 11.8-15.4 [facility] Comment on above: Performed By: #### C BCNOOUTREACH, OUTREACH GLYCO, OUTREACH CMP, OUTREACH LIPID, OUTREACH TSH #### [facility] [address] Leukocytes [#/volume] correc alison for nucleated erythrocytes in Blood by Automated counOrdered By: [facility] on 08-25-2022 WBC corrected for nucl RBC Auto (Bld) [#/Vol] 6.9 10*3/uL 3.8-11.6 [facility] Lipid Profile Outreach LDL Cholesterol,Calculated 69 mg/dL Normal 0-100 [facility] Comment on above: Result Comment: LDL ATP III CLASSIFICATION LDL less than 100 mg/dL Optimal LDL 100-129 mg/dL Near or above optimal LDL 130-159 mg/dL Borderline high LDL 160-189 mg/dL High LDL greater than 189 mg/dL Very high Performed By: #### C BCNOOUTREACH, OUTREACH GLYCO, OUTREACH CMP, OUTREACH LIPID, OUTREACH TSH #### [address] Triglyceride w/Reflex 72 mg/dL Normal 0-[address] [facility] Comment on above: Result Comment: TRIG ATP III CLASSIFICATION TRIG less than 150 mg/dL Normal TRIG 150-199 mg/dL Borderline high TRIG 200-500 mg/dL High TRIG greater than 500 mg/dL Very high Standard traceable to the Center for Disease Conrtrol and Prevention (CDC) test method. Performed By: #### C BCNOOUTREACH, OUTREACH GLYCO, OUTREACH CMP, OUTREACH LIPID, OUTREACH TSH #### [facility] [address] [place] [id number] [place] VLDL CHOLESTEROL 14 mg/dL Normal [facility] Comment on above: Performed By: #### C BCNOOUTREACH, OUTREACH GLYCO, OUTREACH CMP, OUTREACH LIPID, OUTREACH TSH #### [facility] [address] MCH [Entitic mass] by Automa alison countOrdered By: OUTREACH COMMUNITY on 08-25-2022 MCH (RBC) [Entitic mass] 32.0 pg Normal 24.7-34.3 [facility] Comment on above: Performed By: #### C BCNOOUTREACH, OUTREACH GLYCO, OUTREACH CMP, OUTREACH LIPID, OUTREACH TSH #### [facility] [address] MCHC Auto (RBC) [Mass/Vol]Or dered By: [facility] on 08-25-2022 MCHC (RBC) [Mass/Vol] 33.3 g/dL 32.0-35.[address] [facility] MCV [Entitic volume] by Auto mated countOrdered By: [facility] on 08-25-2022 MCV (RBC) [Entitic vol] 96.3 fL Normal 80-100 [facility] Comment on above: Performed By: #### C BCNOOUTREACH, OUTREACH GLYCO, OUTREACH CMP, OUTREACH LIPID, OUTREACH TSH #### [facility] [address] [place] [address] No Panel InformationOrdered By: OUTREACH COMMUNITY on 08-25-2022 Pharmacy Creatinine Clearance (Chem N/A [facility] Outreach Glycoon 08-25-2022 Glucose [Mass/Vol] 128 mg/dL Normal [facility] Comment on above: Result Comment: PERF ORMED BY: [place] [address] PATHOLOGIST DIRECTOR OF STRATEGIC PARTNERSHIPS ANTOINE CISNEROS M.D. Performed By: #### C BCNOOUTREACH, OUTREACH GLYCO, OUTREACH CMP, OUTREACH LIPID, OUTREACH TSH #### [facility] [address] [place] [address] Outreach GlycoOrdered By: [facility] on 08-25-2022 HbA1c (Bld) [Mass fraction] 6.1 % High 4.3-5.6 [facility] Comment on above: Increased risk for d iabetes: 5.7 - 6.4diabetes: >6.4glycemic control for adults with diabetes: <7.0 Result Comment: Incr eased risk for diabetes: 5.7 - 6.4 diabetes: >6.4 glycemic control for adults with diabetes: <7.0 Performed By: #### C BCNOOUTREACH, OUTREACH GLYCO, OUTREACH CMP, OUTREACH LIPID, OUTREACH TSH #### [facility] [address] [place] [address] [place] Platelet mean volume [Entiti c volume] in Blood by Automated countOrdered By: OUTREACH COMMUNITY on 08-25-2022 Platelet mean volume (Bld) [Entitic vol] 9.4 fL Normal 6.3-10.7 [facility] Comment on above: Result Comment: PERF ORMED BY: [place] [address] PATHOLOGIST DIRECTOR OF STRATEGIC PARTNERSHIPS ANTOINE CISNEROS M.D. Performed By: #### C BCNOOUTREACH, OUTREACH GLYCO, OUTREACH CMP, OUTREACH LIPID, OUTREACH TSH #### [facility] [address] [place] [address] [place] Platelets [#/volume] in Bloo d by Automated countOrdered By: [facility] on 08-25-2022 Platelets (Bld) [#/Vol] 241 10*3/uL Normal 150-450 [facility] Comment on above: Performed By: #### C BCNOOUTREACH, OUTREACH GLYCO, OUTREACH CMP, OUTREACH LIPID, OUTREACH TSH #### [place] [address] [place] Potassium [Moles/volume] in Serum or PlasmaOrdered By: OUTREACH COMMUNITY on 08-25-2022 Potassium [Moles/Vol] 4.7 mmol/L Normal 3.5-5.[address] [facility] Comment on above: Performed By: #### C BCNOOUTREACH, OUTREACH GLYCO, OUTREACH CMP, OUTREACH LIPID, OUTREACH TSH #### [place] [id number] [place] Protein [Mass/volume] in Ser um or PlasmaOrdered By: OUTREACH COMMUNITY on 08-25-2022 Protein [Mass/Vol] 6.7 g/dL Normal 6.4-8.9 [facility] Comment on above: Performed By: #### C BCNOOUTREACH, OUTREACH GLYCO, OUTREACH CMP, OUTREACH LIPID, OUTREACH TSH #### [facility] [address] Serum or plasma anion gap de terminationOrdered By: OUTREACH COMMUNITY on 08-25-2022 Anion gap [Moles/Vol] 12.4 mmol/L Normal 6.0-15.0 [facility] Comment on above: Performed By: #### C BCNOOUTREACH, OUTREACH GLYCO, OUTREACH CMP, OUTREACH LIPID, OUTREACH TSH #### [facility] [address] [place] [address] Serum or plasma high density lipoprotein (HDL) cholesterol measurementOrdered By: OUTREACH COMMUNITY on 08-25-2022 Cholesterol in HDL [Mass/Vol] 50 mg/dL Normal 35-85 [facility] Comment on above: HDL CHOL ATP-III CLA SSIFICATION Cardiovascular RiskHDL > or equal to 60 mg/dL LOWHDL < 40 mg/dL HIGH Result Comment: HDL CHOL ATP-III CLASSIFICATION Cardiovascular Risk HDL > or equal to 60 mg/dL LOW HDL < 40 mg/dL HIGH Performed By: #### C BCNOOUTREACH, OUTREACH GLYCO, OUTREACH CMP, OUTREACH LIPID, OUTREACH TSH #### [facility] [address] [place] [address] Serum or plasma total choles terol/high density lipoprotein (HDL) cholesterol mass ratOrdered By: OUTREACH COMMUNITY on 08-25-2022 Cholesterol.total/Samira sterol in HDL [Mass ratio] 2.7 {ratio} Normal <5.0 [facility] Comment on above: Performed By: #### C BCNOOUTREACH, OUTREACH GLYCO, OUTREACH CMP, OUTREACH LIPID, OUTREACH TSH #### [facility] [address] [place] [address] Sodium [Moles/volume] in Ser um or PlasmaOrdered By: OUTREACH COMMUNITY on 08-25-2022 Sodium [Moles/Vol] 142 mmol/L Normal 136-145 [facility] Comment on above: Performed By: #### C BCNOOUTREACH, OUTREACH GLYCO, OUTREACH CMP, OUTREACH LIPID, OUTREACH TSH #### [facility] [address] [place] [address] Thyrotropin [Units/volume] i n Serum or PlasmaOrdered By: [facility] on 08-25-2022 TSH Qn 1.44 m[IU]/L Normal 0.45-5.33 [facility] Comment on above: Result Comment: PERF ORMED BY: [facility] [address] [place] [address] PATHOLOGIST DIRECTOR OF STRATEGIC PARTNERSHIPS ANTOINE CISNEROS M.D. Performed By: #### C BCNOOUTREACH, OUTREACH GLYCO, OUTREACH CMP, OUTREACH LIPID, OUTREACH TSH #### [facility] [address] Triglyceride [Mass/volume] i n Serum or PlasmaOrdered By: [facility] on 08-25-2022 Triglyceride [Mass/Vol] 72 mg/dL 0-149 [facility] Comment on above: TRIG ATP III CLASSIF ICATIONTRIG less than 150 mg/dL NormalTRIG 150-199 mg/dL Borderline highTRIG 200-500 mg/dL High TRIG greater than 500 mg/dL Very highStandard traceable to the Center for Disease Conrtrol and Prevention (CDC) test method. Urea nitrogen [Mass/volume] in Serum or PlasmaOrdered By: [facility] on 08-25-2022 Urea nitrogen [Mass/Vol] 15 mg/dL Normal 7-25 [facility] Comment on above: Performed By: #### C BCNOOUTREACH, OUTREACH GLYCO, OUTREACH CMP, OUTREACH LIPID, OUTREACH TSH #### [facility] [address] SCREENING MAMMOGRAM W/SWETA, BILATERAL*on 04-27-2022 SCREENING [...] VERY IMPORTANT TO YOUR HEALTH. THE CURRENT [place] [employer] AND [employer] NETWORK GUIDELINES RECOMMENDS ANNUAL MAMMOGRAPHY BEGINNING AT AGE 40 THIS FACILITY USES A REMINDER SYSTEM TO ENSURE ALL PATIENTS RECEIVE REMINDER NOTIFICATIONS AT THE APPROPRIATE TIME BASED ON THE RECOMMENDATIONS OF THIS EXAM. Board Certified Radiologist. Accredited by the ACR and FDA. Report reported and signed by Stevenson Nick on 04/27/2022 1048 Normal [facility] Explosive Technician GLYCOHEMOGLOBIN A1Con 2017 Glucose mass conc 131 mg/dL Normal [facility] Comment on above: Performed By: #### A 1C ####[facility] [id number] [place] Hemoglobin A1c/Hemoglobin.total mass fraction (Bld) 6.2 % Critically high <=6.0 [facility] Comment on above: Performed By: #### A 1C ####[facility] [id number] [place] Vital Signs Date Time Vital Sign Value Performing Clinician Ap balderas 03-17-2024 15:14-0400 Blood Pressure Location Vamsi MARTINEZ [facility] 03-17-2024 15:14-0400 Diastolic blood pressure 100 mm[Hg] Vamsi MARTINEZ [facility] 03-17-2024 15:14-0400 Heart rate 76 /min Vamsi HARTL [facility] 03-17-2024 15:14-0400 Respiratory rate 16 /min Vamsi MARTINEZ [facility] 03-17-2024 15:14-0400 Systolic blood pressure 132 mm[Hg] Vamsi MARTINEZ [facility] Encounters Encounter Date Encounter Type Care Provider Facility Start: 03-17-2024 End: 03-17-2024 ambulatory Vamsi MARTINEZ Facility:[facility] Start: 03-17-2024 End: 03-17-2024 Patient encounter procedure Vamsi MARTINEZ [facility] Start: 07-27-2023 End: 07-27-2023 ambulatory Outreach Community Facility:[facility] Start: 07-27-2023 End: 07-27-2023 ambulatory MD Arley Mckay Work Phone: [facility] Work Phone: Start: 07-27-2023 End: 07-27-2023 Departed Referred MD Arley Mckay Work Phone: [facility] Outreach Work Phone: Start: 06-06-2023 End: 06-07-2023 ambulatory LALITA ROSS Not Available Start: 04-25-2023 End: 04-25-2023 ambulatory LALITA ROSS Not Available Start: 08-25-2022 End: 08-25-2022 ambulatory Outreach Community Facility:[facility] Start: 08-25-2022 End: 08-25-2022 ambulatory MD Arley Mckay Work Phone: [facility] Work Phone: Start: 08-25-2022 End: 08-25-2022 Departed Referred MD Arley Mckay Work Phone: [facility] Outreach Work Phone: Start: 09-09-2017 End: 09-10-2017 Ambulatory ARLEY MCKAY Facility:[facility]1 Procedures Date Procedure Procedure Detail Performing Clinician section Vamsi Yancey Dilation and curettage Gigi MARTINEZ Tonsillectomy Vamsi MARTINEZ Immunizations Immunization Date Immunization Notes Care Provider Fa [facility] 05-01-2022 SARS-CoV-2 (COVID-19 ) [id number] Vamsi MARTINEZ [facility] 03-21-2021 SARS-CoV-2 (COVID-19 ) mRNA BNT-162b2 vax Vamsi MARTINEZ [facility] 08-30-2020 SARS-CoV-2 (COVID-19 ) mRNA BNT-162b2 samantha MARTINEZ [facility] 08-09-2020 SARS-CoV-2 (COVID-19 ) mRNA BNT-162b2 samantha MARTINEZ [facility] Payers Date Payer Category Payer Self-pay [id number] 2020 Unknown [id number] 1968 Unknown [id number] 1968 Unknown [id number] 1968 Unknown [id number] 1961 Self-pay [id number] Private Health Insurance [facility] [id number] Unknown MMO [employer] [id number] Unknown [id number] Unknown [id number] Social History Date Type Detail Facility [facility] Work Phone: Start: 1970 Sex Assigned At Female [facility] Start: 03-17-2024 Tobacco smoking status Never s moked tobacco (finding) [facility] Tobacco smoking status Never [facility] Sex Assigned At Female [facility] Functional Status Date Assessment Result Facility 03-17-2024 Functional Status N/A [facility] [place] Clinical Note 03-17-2024 Note Date & Type Note Facility 03-17-2024 Note General Surgery Offi ce/Clinic Note Chief Complaint consultation for colonoscopy HPI Staff 53 year old female presents on consultation from Dr. Mckay for positive occult stool. Patient presented to [place] ED 02/15 with complaint of several hour history of crampy abdominal pain, diarrhea and blood in stool. CT with suspected colitis. Prescribed Flagyl 500mg TID x 7 days. Symptoms resolved one day after ED visit. Currently, denies abdominal or rectal pain. No further rectal bleeding. Denies bowel change. No nausea or vomiting. No unexplained weight loss. Never had colonoscopy in the past. No known family history of colon cancer. History of Present Illness 53 yo female with h/o htn, DMII, hypothyroidism, morbid obesity, hypercholesterolemia, referred for rectal bleeding; positive fecal occult blood test, abnormal abd ct scan; patient had episode of crampy pain and loose stools with rectal bleeding in toilet bowel and with wiping; seen in ED 02/16/24; abd/pelvic ct scan with mild thickening/inflammation of transverse/descending and sigmoid colon; treated with flagyl symptoms resolved quickly; no fevers, no N/V; no recurrent abd pain; one other episode of rectal bleeding; also noted to have positive fecal occult blood test; abdominal operations significant for , no previous colonoscopy; on baby asa daily, no NSAID use; no tobacco use; no fmhx of GI malignancy or IBD. Review of Systems PHQ Score Initial Depression Screen Score: 0 SCORE ROS - Provider Constitutional: no fever, no sweats, no weight loss. Eyes: no glasses, no blurred vision, no visual loss. ENMT: no dentures, no hoarseness, no swallowing difficulties, no hearing loss, no ear infection(s), no nose bleeds. Cardiovascular: normal blood pressure, no chest pain, regular heartbeat, no heart murmur. Respiratory: no shortness of breath, no cough, no asthma, no wheezing. Gastrointestinal: no nausea, no vomiting, no diarrhea, no constipation, yes blood in stool, yes change in bowel habits, no abdominal pain, no hepatitis. Genitourinary: no kidney stones, no urine infection, no dysuria. Musculoskeletal: no pain, no weakness. Skin: no changing moles, no rash, no skin lumps. Neurologic: no seizures, no epilepsy, no headache. Psychiatric: no emotional or psychiatric problem. Heme/Lymph: no bleeding problems, no anemia, no blood clots, no transfusions. Allergy/Immunologic: no swollen lymph nodes/glands, no IV drug abuse. Other: Additional ROS info: Except as noted in the above Review of Systems and in the History of Present Illness, all other systems have been reviewed and are negative or noncontributory. Physical Exam Vitals & Measurements HR: 76(Peripheral) RR: 16 BP: 132/100 HT: 62 in HT: 157.4 cm WT: 120 kg WT: 264 lb BMI: 48.44 HEENT: normal conjunctiva, sclera clear, no scleral icterus, EOM intact, PERRLA, oral mucosa moist without lesions. Neck: trachea midline, no mass, symmetric, no thyromegaly or nodules, no adenopathy Respiratory: lungs CTA, respirations non labored. Cardiovascular: regular rate and rhythm, no murmur, no pedal edema or varicosities. Gastrointestinal: obese, soft, non distended, no tenderness, no masses, no palpable hernias, diastasis recti no, no hepatosplenomegaly; normal bs Lymphatic: no cervical adenopathy, no supraclavicular adenopathy. Musculoskeletal: normal gait, digits and nails without infection, nodes, cyanosis, clubbing. Skin: no rashes, no lesions, no ulcers, no subcutaneous nodules, induration. Psychiatric/Neuro: oriented to time, place, person, judgement normal, affect appropriate for age, insight intact, no focal deficits. Tests: labs reviewed, ct images reviewed; review of old records completed , Discussed surgical options, risks, and possible complications with patient. Assessment/Plan 1. Positive fecal occult blood test (R19.5: Other fecal abnormalities) plan colonoscopy under anesthesia for further evaluation, informed consent obtained. 2. 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 Medications aspirin 81 mg Chew Tab, 81 mg= 1 tab(s), Chewed, Daily atorvastatin 20 mg Tab, 20 mg= 1 tab(s), Oral, Daily cetirizine 10 mg Tab, 10 mg= 1 tab(s), Oral, Daily Coreg 12.5 mg Tab, 12.5 mg= 1 tab(s), Oral, BID irbesartan 150 mg Tab, 150 mg= 1 tab(s), Oral, Daily metformin 500 mg Tab, 500 mg= 1 tab(s), Oral, Daily Multi Vitamins oral t (more content not included)... [facility] Comment on above: Result Comment: Elec tronically Signed By: MICHELLE RAMOS, Vamsi Eubanks\buffy\Date and Time Signed: 03/17/24 16:21 EDT Evaluation + Plan note Note Date & Type Note Facility Evaluation + Plan note No data available for this section [facility] Evaluation note Note Date & Type Note Facility Evaluation note No assessment information availa [facility] Work Phone: Hospital Discharge instructions Note Date & Type Note Facility Hospital Discharge instructions No data available for this section [facility] Progress note Note Date & Type Note Facility Progress note No data available for this section [facility] Summary Purpose Family History No Family History Records FoundNo Family History Records FoundNo Family History Records FoundNo Family History Records FoundNo Family History Records Found No data available for this section Advance Directives Advance Directive Response Recorded Date/ Time Advance Directives No March 27, 2018 1:47pm Advance Directive Response Recorded Date/ Time Advance Directives No March 27, 2018 12:47pm Chief Complaint and Reason for Visit Chief Complaint Complete A1C TSH Chief Complaint Complete TSH Additional Source Comments INFORMATION SOURCE (unrecogn ized section and content) DATE CREATED AUTHOR 11/28/2017 [facility] DATE CREATED AUTHOR AUTHOR'S ORGANIZ ATION 04/28/2022 [facility] DATE CREATED AUTHOR AUTHOR'S ORGANIZ ATION 06/10/2023 [facility] DATE CREATED AUTHOR AUTHOR'S ORGANIZ ATION 07/28/2023 [facility] DATE CREATED AUTHOR AUTHOR'S ORGANIZ ATION 03/19/2024 Leonid Noriega [facility] Care Teams (unrecognized sec tion and content) Personnel Name: Arley Mckay MD Address: Address: [address] [place] [address] Team Status: Active Member Role Status Sendy Mckay MD Primary Care Provider Active Team Status: Inactive Member Role Status Sendy Mckay MD Primary Care Provider Active [facility] Attending Provider Active Team Status: Inactive Member Role Status Dates Arley Mckay MD Primary Care Provider Active Start: July 27, 2023 End: July 27, 2023 [facility] Attending Provider Active Sta rt: July 27, 2023 End: July 27, 2023 Goals (unrecognized section and content) Goals may be documented in a n alternate sectionGoals may be documented in an alternate section No data available for this section FOR RECORDS PERTAINING TO PATIENTS WHO [...] BE BASED ON THE PRIMARY CLINICAL RECORDS. [facility] [employer] provides no warranty or guarantee of the accuracy or completeness of information in this document.
== END 2024-03-26 09:39 | disposition home or self-care (01) ==
LOC: PST 09:38
PROVIDERS: PCP Family Medicine; Visit Provider Surgery
DX: Z01.818 Encounter for other preprocedural examination (principal); R19.5 Other fecal abnormalities; R93.5 Abnormal findings on diagnostic imaging of other abdominal regions, including retroperitoneum

== ENCOUNTER 2024-04-15 07:23 | Day surgery (SDC) | payer OTHER, SELFPAY ==
--- NOTE | 2024-04-15 | OP_ITS ---
OPERATION DATE: 04/15/2024 PREOPERATIVE DIAGNOSIS: Intermittent rectal bleeding. Positive fecal occult blood. POSTOPERATIVE DIAGNOSIS: Rectal inflammation. Prominent rectal veins. PROCEDURE: Colonoscopy to cecum. SURGEON: Vamsi Tran M.D. ANESTHESIA: Monitored anesthesia care. ESTIMATED BLOOD LOSS: Less than 1 mL. INDICATIONS AND CONSENT: Patient is a 53-year-old female with history of intermittent rectal bleeding, as well as crampy abdominal pain. Workup revealed some mild thickening, inflammation of the transverse, descending and sigmoid colon. Her symptoms improved with antibiotics; however, she still has some intermittent rectal bleeding. Indications, risks, benefits, alternatives of proceeding with colonoscopy were explained extensively to the patient, including the risks of bleeding, colon perforation or anesthetic complications. All of her questions were answered. Informed consent was obtained. PROCEDURE: Patient brought to the operating room, placed in the left lateral decubitus position. Monitored anesthesia care was provided. Rectal exam was performed which showed no masses or blood. The scope was inserted into the anal canal. Under direct visualization was advanced. It was advanced to the cecum where cecal markings were clearly identified. There was noted to be a good prep. Upon withdrawal of the scope, mucosal surfaces were carefully examined. There were no mass lesions or polyps. No significant diverticulosis. Within the rectum, there was noted to be mild rectal inflammation with no ulceration or bleeding. There were prominent rectal veins. Biopsy x2 of the rectum with cold biopsy forceps was obtained with good hemostasis. The scope was then withdrawn. Patient tolerated procedure well, was sent to recovery room in good condition. f/u screening colonoscopy should be in 10 years. CC: Travis Adams M.D. EL
--- OUTSIDE RECORDS SUMMARY | 2024-04-15 07:27 | XMS_ITS | CCD ---
Author Organization [facility] ion Partnership [facility] Care Team Providers [facility] [employer] Supervisor Name Role Phone ARLEY MCKAY Unavailable Unavailable ARLEY MCKAY Unavailable Unavailable ARLEY MCKAY Unavailable Unavailable MD Arley Mckay Primary Care Provider [phone] Community, Outreach Attending Provider LALITA ROSS Referring Unavailable LALITA ROSS Attending Unavailable LALITA ROSS Referring Unavailable MD Arley Mckay Primary Care Provider [phone] Community, Outreach Attending Provider [phone] Community, Outreach Attending Unavailable Arley Mckay Primary Care Unavailable Community, Outreach Admitting Unavailable Community, Outreach Attending Unavailable Arley Mckay Primary Care Unavailable Community, Outreach Admitting Unavailable Vamsi MARTINEZ Attending Unavailable Arley Mckay Referring Unavailable Arley Mckay Primary Care Physician [phone] Allergies Allergy Classification Reported Allergen(s) Allergy Type Date of Onset Reaction(s) Facility (2 sources) Sulfonamides (Antibiotic); Translations: [sulfa drugs] Propensity to adverse reactions (disorder) Patient reported problems (finding) [facility] Repository Medications Current Medications Medication [...] RAMOS, Vamsi Eubanks Primary Care Physician - rByan RAMOS, Arley Referring Physician - Bryan RAMOS, [...] for choosing us for your care. Normal [facility] Alanine aminotransferase [En zymatic activity/volume] in Serum or PlasmaOrdered By: OUTREACH COMMUNITY on 07-27-2023 ALT [Catalytic activity/Vol] 16 U/L 7-52 [facility] Albumin [Mass/volume] in Ser um or Plasma by Bromocresol green (BCG) dye binding methoOrdered By: OUTREACH COMMUNITY on 07-27-2023 Albumin BCG dye [Mass/Vol] 4.1 g/dL 3.5-5.7 [facility] Alkaline phosphatase [Enzyma tic activity/volume] in Serum or PlasmaOrdered By: OUTREACH COMMUNITY on 07-27-2023 ALP [Catalytic activity/Vol] 152 U/L 34-104 [facility] Aspartate aminotransferase [ Enzymatic activity/volume] in Serum or PlasmaOrdered By: OUTREACH COMMUNITY on 07-27-2023 AST [Catalytic activity/Vol] 19 U/L 13-39 [facility] Bilirubin.total [Mass/volume ] in Serum or PlasmaOrdered By: OUTREACH COMMUNITY on 07-27-2023 Bilirubin [Mass/Vol] 0.6 mg/dL 0.3-1.0 [facility] CBC Without Differentialon 0 07-27-2023 Erythrocyte distribution width (RBC) [Ratio] 13.8 % Normal 11.9-15.3 [facility] Comment on above: Performed By: #### O UTREACH TSH, OUTREACH LIPID, CBCNOOUTREACH, OUTREACH CMP #### [facility] [address] Hematocrit (Bld) [Volume fraction] 43.8 % Normal 34.0-46.4 [facility] Comment on above: Performed By: #### O UTREACH TSH, OUTREACH LIPID, CBCNOOUTREACH, OUTREACH CMP #### [facility] [address] [place] [id number] [place] Hemoglobin (Bld) [Mass/Vol] 14.8 g/dL Normal 11.8-15.4 [facility] Comment on above: Performed By: #### O UTREACH TSH, OUTREACH LIPID, CBCNOOUTREACH, OUTREACH CMP #### [facility] [address] [place] [id number] [place] MCH (RBC) [Entitic mass] 31.9 pg Normal 24.7-34.3 [facility] Comment on above: Performed By: #### O UTREACH TSH, OUTREACH LIPID, CBCNOOUTREACH, OUTREACH CMP #### [address] MCV (RBC) [Entitic vol] 94.6 fL Normal 80-100 [facility] Comment on above: Performed By: #### O UTREACH TSH, OUTREACH LIPID, CBCNOOUTREACH, OUTREACH CMP #### [address] Mean Corpuscular HGB Conc 33.7 g/dL Normal 32.0-35.0 [facility] Comment on above: Performed By: #### O UTREACH TSH, OUTREACH LIPID, CBCNOOUTREACH, OUTREACH CMP #### [address] Platelet mean volume (Bld) [Entitic vol] 9.2 fL Normal 6.3-10.7 [facility] Comment on above: Result Comment: PERF ORMED BY: [place] [address] PATHOLOGIST SENIOR TALENT MANAGEMENT CONSULTANT ANTOINE CISNEROS M.D. Performed By: #### O UTREACH TSH, OUTREACH LIPID, CBCNOOUTREACH, OUTREACH CMP #### [place] [address] [place] Platelets (Bld) [#/Vol] 281 10*3/uL Normal 150-450 [facility] Comment on above: Performed By: #### O UTREACH TSH, OUTREACH LIPID, CBCNOOUTREACH, OUTREACH CMP #### [place] [address] [place] RBC (Bld) [#/Vol] 4.63 10*6/uL Normal 3.60-5.00 [facility] Comment on above: Performed By: #### O UTREACH TSH, OUTREACH LIPID, CBCNOOUTREACH, OUTREACH CMP #### [place] [address] [place] WBC (Bld) [#/Vol] 9.6 10*3/uL Normal 3.8-11.6 [facility] Comment on above: Performed By: #### O UTREACH TSH, OUTREACH LIPID, CBCNOOUTREACH, OUTREACH CMP #### [facility] [address] CMP Outreachon 07-27-2023 Albumin [Mass/Vol] 4.1 g/dL Normal 3.5-5.7 [facility] Comment on above: Performed By: #### O UTREACH TSH, OUTREACH LIPID, CBCNOOUTREACH, OUTREACH CMP #### [facility] [address] [place] [address] ALP [Catalytic activity/Vol] 152 U/L High 34-104 [facility] Comment on above: Performed By: #### O UTREACH TSH, OUTREACH LIPID, CBCNOOUTREACH, OUTREACH CMP #### [facility] [address] [place] [address] ALT [Catalytic activity/Vol] 16 U/L Normal 7-52 [facility] Comment on above: Performed By: #### O UTREACH TSH, OUTREACH LIPID, CBCNOOUTREACH, OUTREACH CMP #### [facility] [address] [place] [address] Anion gap [Moles/Vol] 8.6 mmol/L Normal 6.0-15.0 [facility] Comment on above: Performed By: #### O UTREACH TSH, OUTREACH LIPID, CBCNOOUTREACH, OUTREACH CMP #### [facility] [address] [place] [address] AST [Catalytic activity/Vol] 19 U/L Normal 13-39 [facility] Comment on above: Performed By: #### O UTREACH TSH, OUTREACH LIPID, CBCNOOUTREACH, OUTREACH CMP #### [facility] [address] [place] [address] Bilirubin [Mass/Vol] 0.6 mg/dL Normal 0.3-1.0 [facility] Comment on above: Performed By: #### O UTREACH TSH, OUTREACH LIPID, CBCNOOUTREACH, OUTREACH CMP #### [facility] [address] [place] [address] [place] Calcium [Mass/Vol] 9.7 mg/dL Normal 8.6-10.3 [facility] Comment on above: Performed By: #### O UTREACH TSH, OUTREACH LIPID, CBCNOOUTREACH, OUTREACH CMP #### [facility] [address] [place] [address] [place] Chloride [Moles/Vol] 106 mmol/L Normal 98-107 [facility] Comment on above: Performed By: #### O UTREACH TSH, OUTREACH LIPID, CBCNOOUTREACH, OUTREACH CMP #### [facility] [address] [place] [address] [place] CO2 [Moles/Vol] 31.2 mmol/L High 21.0-31.0 [facility] Comment on above: Performed By: #### O UTREACH TSH, OUTREACH LIPID, CBCNOOUTREACH, OUTREACH CMP #### [facility] [address] [place] [address] [place] Creatinine [Mass/Vol] 0.73 mg/dL Normal 0.60-1.20 [facility] Comment on above: Performed By: #### O UTREACH TSH, OUTREACH LIPID, CBCNOOUTREACH, OUTREACH CMP #### [facility] [address] [place] [id number] [place] GFR/1.73 sq M.predicted MDRD (S/P/Bld) [Vol rate/Area] mL/min/{1.73_m2} [facility] Comment on above: Performed By: #### O UTREACH TSH, OUTREACH LIPID, CBCNOOUTREACH, OUTREACH CMP #### [facility] [address] [place] [id number] [place] Glucose [Mass/Vol] 105 mg/dL High 70-100 [facility] Comment on above: Result Comment: [place] Glucose Reference Range is dependent on time and content of last meal. Glucose of more than 200 mg/dL in a nonstressed, ambulatory subject supports the diagnosis of Diabetes Mellitus. ADA recommended reference range Performed By: #### O UTREACH TSH, OUTREACH LIPID, CBCNOOUTREACH, OUTREACH CMP #### [facility] [address] Potassium [Moles/Vol] 4.8 mmol/L Normal 3.5-5.1 [facility] Comment on above: Performed By: #### O UTREACH TSH, OUTREACH LIPID, CBCNOOUTREACH, OUTREACH CMP #### [facility] [address] [place] [address] [place] Protein [Mass/Vol] 6.3 g/dL Low 6.4-8.9 [facility] Comment on above: Performed By: #### O UTREACH TSH, OUTREACH LIPID, CBCNOOUTREACH, OUTREACH CMP #### [facility] [address] Sodium [Moles/Vol] 141 mmol/L Normal 136-145 [facility] Comment on above: Performed By: #### O UTREACH TSH, OUTREACH LIPID, CBCNOOUTREACH, OUTREACH CMP #### [facility] [address] Urea nitrogen [Mass/Vol] 13 mg/dL Normal 7-25 [facility] Comment on above: Performed By: #### O UTREACH TSH, OUTREACH LIPID, CBCNOOUTREACH, OUTREACH CMP #### [facility] [address] Calcium [Mass/volume] in Ser um or PlasmaOrdered By: OUTREACH COMMUNITY on 07-27-2023 Calcium [Mass/Vol] 9.7 mg/dL 8.6-10.3 [facility] Carbon dioxide, total [Moles /volume] in Serum or PlasmaOrdered By: OUTREACH COMMUNITY on 07-27-2023 CO2 [Moles/Vol] 31.2 mmol/L 21.0-31.0 [facility] Chloride [Moles/volume] in S nazanin or PlasmaOrdered By: OUTREACH COMMUNITY on 07-27-2023 Chloride [Moles/Vol] 106 mmol/L 98-107 [facility] Cholesterol [Mass/volume] in Serum or PlasmaOrdered By: OUTREACH COMMUNITY on 07-27-2023 Cholesterol [Mass/Vol] 136 mg/dL 140-200 [facility] Comment on above: Chol less than 200 m g/dl low riskChol 201-239 mg/dl borderline riskChol 240 mg/dl and greater high risk Cholesterol in LDL Calc [Mas s/Vol]Ordered By: [facility] on 07-27-2023 Cholesterol in LDL [Mass/Vol] 80 mg/dL 0-100 [facility] Comment on above: LDL ATP III CLASSIFI CATIONLDL less than 100 mg/dL OptimalLDL 100-129 mg/dL Near or above optimalLDL 130-159 mg/dL Borderline highLDL 160-189 mg/dL HighLDL greater than 189 mg/dL Very high Cholesterol in VLDL Calc [Ma ss/Vol]Ordered By: OUTREACH [facility] on 07-27-2023 Cholesterol in VLDL [Mass/Vol] 15 mg/dL [facility] Creatinine [Mass/volume] in Serum or PlasmaOrdered By: [facility] on 07-27-2023 Creatinine [Mass/Vol] 0.73 mg/dL 0.60-1.20 [facility] Erythrocyte distribution wid th Auto (RBC) [Ratio]Ordered By: [facility] on 07-27-2023 Erythrocyte distribution width (RBC) [Ratio] 13.8 % 11.9-15.3 [facility] Glucose [Mass/volume] in Ser um or PlasmaOrdered By: [facility] on 07-27-2023 Glucose [Mass/Vol] 105 mg/dL 70-100 [facility] Comment on above: ADA recommended refe rence rangeRandom Glucose Reference Range is dependent on time and content of last meal. Glucose of more than 200 mg/dL in a nonstressed, ambulatory subject supports the diagnosis of Diabetes Mellitus. Hematocrit Auto (Bld) [Volum e fraction]Ordered By: [facility] on 07-27-2023 Hematocrit (Bld) [Volume fraction] 43.8 % 34.0-46.4 [facility] Hemoglobin [Mass/volume] in BloodOrdered By: [facility] on 07-27-2023 Hemoglobin (Bld) [Mass/Vol] 14.8 g/dL 11.8-15.4 [facility] Leukocytes [#/volume] correc alison for nucleated erythrocytes in Blood by Automated counOrdered By: [facility] on 07-27-2023 WBC corrected for nucl RBC Auto (Bld) [#/Vol] 9.6 10*3/uL 3.8-11.6 [facility] Lipid Profile Outreachon Cholesterol [Mass/Vol] 136 mg/dL Low 140-200 [facility] Comment on above: Result Comment: Chol less than 200 mg/dl low risk Chol 201-239 mg/dl borderline risk Chol 240 mg/dl and greater high risk Performed By: #### O UTREACH TSH, OUTREACH LIPID, CBCNOOUTREACH, OUTREACH CMP #### [facility] [address] [place] [id number] [place] Cholesterol in HDL [Mass/Vol] 41 mg/dL Normal 23-92 [facility] Comment on above: Result Comment: HDL CHOL ATP-III CLASSIFICATION Cardiovascular Risk HDL > or equal to 60 mg/dL LOW HDL < 40 mg/dL HIGH Performed By: #### O UTREACH TSH, OUTREACH LIPID, CBCNOOUTREACH, OUTREACH CMP #### [facility] [address] [place] [id number] [place] Cholesterol.total/Samira sterol in HDL [Mass ratio] 3.3 {ratio} Normal <5.0 [facility] Comment on above: Performed By: #### O UTREACH TSH, OUTREACH LIPID, CBCNOOUTREACH, OUTREACH CMP #### [facility] [address] [place] [address] [place] LDL Cholesterol,Calculated 80 mg/dL Normal 0-100 [facility] Comment on above: Result Comment: LDL ATP III CLASSIFICATION LDL less than 100 mg/dL Optimal LDL 100-129 mg/dL Near or above optimal LDL 130-159 mg/dL Borderline high LDL 160-189 mg/dL High LDL greater than 189 mg/dL Very high Performed By: #### O UTREACH TSH, OUTREACH LIPID, CBCNOOUTREACH, OUTREACH CMP #### [facility] [address] [place] [id number] [place] Triglyceride w/Reflex 77 mg/dL Normal 0-149 [facility] Comment on above: Result Comment: TRIG ATP III CLASSIFICATION TRIG less than 150 mg/dL Normal TRIG 150-199 mg/dL Borderline high TRIG 200-500 mg/dL High TRIG greater than 500 mg/dL Very high Standard traceable to the [place] for Disease Conrtrol and Prevention (CDC) test method. Performed By: #### [facility], OUTREACH LIPID, CBCNOOUTREACH, OUTREACH CMP #### [facility] [address] VLDL CHOLESTEROL 15 mg/dL Normal [facility] Comment on above: Performed By: #### O [facility] TSH, OUTREACH LIPID, CBCNOOUTREACH, OUTREACH CMP #### [facility] [address] MCH Auto (RBC) [Entitic mass ]Ordered By: [facility] on 07-27-2023 MCH (RBC) [Entitic mass] 31.9 pg 24.7-34.3 [facility] MCHC Auto (RBC) [Mass/Vol]Or dered By: OUTREACH [facility] on 07-27-2023 MCHC (RBC) [Mass/Vol] 33.7 g/dL 32.0-35.0 [facility] MCV Auto (RBC) [Entitic vol] Ordered By: [facility] on 07-27-2023 MCV (RBC) [Entitic vol] 94.6 fL 80-100 [facility] No Panel InformationOrdered By: [facility] on 07-27-2023 Estimated GFR (CKD-EPI) > 60.0 mL/Min [facility] Creatinine Clearance (Chem N/A [facility] Platelet mean volume Auto (B ld) [Entitic vol]Ordered By: [facility] on 07-27-2023 Platelet mean volume (Bld) [Entitic vol] 9.2 fL 6.3-10.7 [facility] Platelets Auto (Bld) [#/Vol] Ordered By: [facility] on 07-27-2023 Platelets (Bld) [#/Vol] 281 10*3/uL 150-450 [facility] Potassium [Moles/volume] in Serum or PlasmaOrdered By: OUTREACH [facility] on 07-27-2023 Potassium [Moles/Vol] 4.8 mmol/L 3.5-5.1 [facility] Protein [Mass/volume] in Ser um or PlasmaOrdered By: OUTREACH [facility] on 07-27-2023 Protein [Mass/Vol] 6.3 g/dL 6.4-8.9 [facility] RBC Auto (Bld) [#/Vol]Ordere d By: OUTREACH COMMUNITY on 07-27-2023 RBC (Bld) [#/Vol] 4.63 10*6/uL 3.60-5.00 [facility] Serum or plasma anion gap de terminationOrdered By: OUTREACH COMMUNITY on 07-27-2023 Anion gap [Moles/Vol] 8.6 mmol/L 6.0-15.0 [facility] Serum or plasma high density lipoprotein (HDL) cholesterol measurementOrdered By: OUTREACH COMMUNITY on 07-27-2023 Cholesterol in HDL [Mass/Vol] 41 mg/dL 23-92 [facility] Comment on above: HDL CHOL ATP-III CLA SSIFICATION Cardiovascular RiskHDL > or equal to 60 mg/dL LOWHDL < 40 mg/dL HIGH Serum or plasma total choles terol/high density lipoprotein (HDL) cholesterol mass ratOrdered By: OUTREACH COMMUNITY on 07-27-2023 Cholesterol.total/Samira sterol in HDL [Mass ratio] 3.3 {ratio} <5.0 [facility] Sodium [Moles/volume] in Ser um or PlasmaOrdered By: OUTREACH COMMUNITY on 07-27-2023 Sodium [Moles/Vol] 141 mmol/L 136-145 [facility] Thyroid Stimulating Hormoneo n 07-27-2023 TSH Qn 1.87 m[IU]/L Normal 0.45-5.33 [facility] Comment on above: Result Comment: PERF ORMED BY: [place] [address] PATHOLOGIST SENIOR TALENT MANAGEMENT CONSULTANT ANTOINE CISNEROS M.D. Performed By: #### O [facility] TSH, OUTREACH LIPID, CBCNOOUTREACH, OUTREACH CMP #### [address] Thyrotropin [Units/volume] i n Serum or PlasmaOrdered By: OUTREACH COMMUNITY on 07-27-2023 TSH Qn 1.87 m[IU]/L 0.45-5.33 [facility] Triglyceride [Mass/volume] i n Serum or PlasmaOrdered By: OUTREACH COMMUNITY on 07-27-2023 Triglyceride [Mass/Vol] 77 mg/dL 0-149 [facility] Comment on above: TRIG ATP III CLASSIF ICATIONTRIG less than 150 mg/dL NormalTRIG 150-199 mg/dL Borderline highTRIG 200-500 mg/dL High TRIG greater than 500 mg/dL Very highStandard traceable to the Center for Disease Conrtrol and Prevention (CDC) test method. Urea nitrogen [Mass/volume] in Serum or PlasmaOrdered By: [facility] on 07-27-2023 Urea nitrogen [Mass/Vol] 13 mg/dL 01-01 [facility] BI MAMMOGRAM SCREENING TOMOS YNTHESIS BILATERALon 04-25-2023 [...] IS VERY IMPORTANT TO YOUR HEALTH. THE [employer] GUIDELINES RECOMMEND THAT WOMEN 40 [...] zymatic activity/volume] in Serum or PlasmaOrdered By: [facility] on 08-25-2022 ALT [Catalytic activity/Vol] 15 U/L Normal [facility] Comment on above: Performed By: #### C BCNOOUTREACH, OUTREACH GLYCO, OUTREACH CMP, OUTREACH LIPID, OUTREACH TSH #### [facility] [address] [place] [address] [place] Albumin [Mass/volume] in Ser um or Plasma by Bromocresol green (BCG) dye binding methoOrdered By: OUTREACH COMMUNITY on 08-25-2022 Albumin BCG dye [Mass/Vol] 4.4 g/dL 3.5-5.7 [facility] Alkaline phosphatase [Enzyma tic activity/volume] in Serum or PlasmaOrdered By: OUTREACH COMMUNITY on 08-25-2022 ALP [Catalytic activity/Vol] 145 U/L High 34-104 [facility] Comment on above: Performed By: #### C BCNOOUTREACH, OUTREACH GLYCO, OUTREACH CMP, OUTREACH LIPID, OUTREACH TSH #### [address] Aspartate aminotransferase [ Enzymatic activity/volume] in Serum or PlasmaOrdered By: OUTREACH COMMUNITY on 08-25-2022 AST [Catalytic activity/Vol] 20 U/L Normal 13-39 [facility] Comment on above: Performed By: #### C BCNOOUTREACH, OUTREACH GLYCO, OUTREACH CMP, OUTREACH LIPID, OUTREACH TSH #### [facility] [address] Bilirubin.total [Mass/volume ] in Serum or PlasmaOrdered By: OUTREACH COMMUNITY on 08-25-2022 Bilirubin [Mass/Vol] 0.7 mg/dL Normal 0.3-1.0 [facility] Comment on above: Performed By: #### C BCNOOUTREACH, OUTREACH GLYCO, OUTREACH CMP, OUTREACH LIPID, OUTREACH TSH #### [facility] [address] [place] [address] [place] CBC Without Differentialon 0 08-25-2022 Mean Corpuscular HGB Conc 33.3 g/dL Normal 32.0-35.0 [facility] Comment on above: Performed By: #### C BCNOOUTREACH, OUTREACH GLYCO, OUTREACH CMP, OUTREACH LIPID, OUTREACH TSH #### [facility] [address] [place] [address] [place] WBC (Bld) [#/Vol] 6.9 10*3/uL Normal 3.8-11.6 [facility] Comment on above: Performed By: #### C BCNOOUTREACH, OUTREACH GLYCO, OUTREACH CMP, OUTREACH LIPID, OUTREACH TSH #### [facility] [address] [place] [id number] [place] CMP Outreachon 08-25-2022 Albumin [Mass/Vol] 4.4 g/dL Normal 3.5-5.7 [facility] Comment on above: Performed By: #### C BCNOOUTREACH, OUTREACH GLYCO, OUTREACH CMP, OUTREACH LIPID, OUTREACH TSH #### [facility] [address] CMP OutreachOrdered By: OUTR EACH COMMUNITY on 08-25-2022 GFR/1.73 sq M.predicted MDRD (S/P/Bld) [Vol rate/Area] mL/min/{1.73_m2} Normal [facility] Comment on above: Performed By: #### C BCNOOUTREACH, OUTREACH GLYCO, OUTREACH CMP, OUTREACH LIPID, OUTREACH TSH #### [facility] [address] [place] [address] [place] Calcium [Mass/volume] in Ser um or PlasmaOrdered By: OUTREACH COMMUNITY on 08-25-2022 Calcium [Mass/Vol] 10.3 mg/dL Normal 8.6-10.3 [facility] Comment on above: Performed By: #### C BCNOOUTREACH, OUTREACH GLYCO, OUTREACH CMP, OUTREACH LIPID, OUTREACH TSH #### [facility] [address] [place] [id number] [place] Carbon dioxide, total [Moles /volume] in Serum or PlasmaOrdered By: OUTREACH COMMUNITY on 08-25-2022 CO2 [Moles/Vol] 28.3 mmol/L Normal 21.0-31.0 [facility] Comment on above: Performed By: #### C BCNOOUTREACH, OUTREACH GLYCO, OUTREACH CMP, OUTREACH LIPID, OUTREACH TSH #### [facility] [address] [place] [address] [place] Chloride [Moles/volume] in S nazanin or PlasmaOrdered By: OUTREACH COMMUNITY on 08-25-2022 Chloride [Moles/Vol] 106 mmol/L Normal 98-107 [facility] Comment on above: Performed By: #### C BCNOOUTREACH, OUTREACH GLYCO, OUTREACH CMP, OUTREACH LIPID, OUTREACH TSH #### [facility] [address] [place] [address] [place] Cholesterol [Mass/volume] in Serum or PlasmaOrdered By: OUTREACH COMMUNITY on 08-25-2022 Cholesterol [Mass/Vol] 133 mg/dL Low 140-200 [facility] Comment on above: Chol less than 200 m g/dl low riskChol 201-239 mg/dl borderline riskChol 240 mg/dl and greater high risk Result Comment: Chol less than 200 mg/dl low risk Chol 201-239 mg/dl borderline risk Chol 240 mg/dl and greater high risk Performed By: #### C BCNOOUTREACH, OUTREACH GLYCO, OUTREACH CMP, OUTREACH LIPID, OUTREACH TSH #### [facility] [address] [place] [id number] [facility] Cholesterol in LDL Calc [Mas s/Vol]Ordered By: OUTREACH COMMUNITY on 08-25-2022 Cholesterol in LDL [Mass/Vol] 69 mg/dL 0-100 [facility] Comment on above: LDL ATP III CLASSIFI CATIONLDL less than 100 mg/dL OptimalLDL 100-129 mg/dL Near or above optimalLDL 130-159 mg/dL Borderline highLDL 160-189 mg/dL HighLDL greater than 189 mg/dL Very high Cholesterol in VLDL Calc [Ma ss/Vol]Ordered By: OUTREACH COMMUNITY on 08-25-2022 Cholesterol in VLDL [Mass/Vol] 14 mg/dL [facility] Creatinine [Mass/volume] in Serum or PlasmaOrdered By: OUTREACH COMMUNITY on 08-25-2022 Creatinine [Mass/Vol] 0.70 mg/dL Normal 0.60-1.20 [facility] Comment on above: Performed By: #### C BCNOOUTREACH, OUTREACH GLYCO, OUTREACH CMP, OUTREACH LIPID, OUTREACH TSH #### [facility] [address] [place] [address] [place] Erythrocyte distribution wid th [Ratio] by Automated countOrdered By: OUTREACH COMMUNITY on 08-25-2022 Erythrocyte distribution width (RBC) [Ratio] 14.2 % Normal 11.9-15.3 [facility] Comment on above: Performed By: #### C BCNOOUTREACH, OUTREACH GLYCO, OUTREACH CMP, OUTREACH LIPID, OUTREACH TSH #### [facility] [address] [place] [address] [place] Erythrocytes [#/volume] in B lood by Automated countOrdered By: [facility] on 08-25-2022 RBC (Bld) [#/Vol] 4.56 10*6/uL Normal 3.60-5.00 [facility] Comment on above: Performed By: #### C BCNOOUTREACH, OUTREACH GLYCO, OUTREACH CMP, OUTREACH LIPID, OUTREACH TSH #### [facility] [address] Glucose [Mass/volume] in Ser um or PlasmaOrdered By: [facility] on 08-25-2022 Glucose [Mass/Vol] 108 mg/dL Normal 74-109 [facility] Comment on above: ADA recommended refe rence rangeRandom Glucose Reference Range is dependent on time and content of last meal. Glucose of more than 200 mg/dL in a nonstressed, ambulatory subject supports the diagnosis of Diabetes Mellitus. Result Comment: [place] om Glucose Reference Range is dependent on time and content of last meal. Glucose of more than 200 mg/dL in a nonstressed, ambulatory subject supports the diagnosis of Diabetes Mellitus. ADA recommended reference range Performed By: #### C BCNOOUTREACH, OUTREACH GLYCO, OUTREACH CMP, OUTREACH LIPID, OUTREACH TSH #### [facility] [address] [place] [id number] [facility] Glucose mean value [Mass/vol ume] in Blood Estimated from glycated hemoglobinOrdered By: [facility] on 08-25-[facility]22 Average glucose Estimated from glycated hemoglobin (Bld) [Mass/Vol] 128 mg/dL [facility] Hematocrit [Volume Fraction] of Blood by Automated countOrdered By: [facility] on 08-25-2022 Hematocrit (Bld) [Volume fraction] 43.9 % Normal 34.0-46.4 [facility] Comment on above: Performed By: #### C BCNOOUTREACH, OUTREACH GLYCO, OUTREACH CMP, OUTREACH LIPID, OUTREACH TSH #### [facility] [address] Hemoglobin [Mass/volume] in BloodOrdered By: [facility] on 08-25-2022 Hemoglobin (Bld) [Mass/Vol] 14.6 g/dL Normal 11.8-15.4 [facility] Comment on above: Performed By: #### C BCNOOUTREACH, OUTREACH GLYCO, OUTREACH CMP, OUTREACH LIPID, OUTREACH TSH #### [facility] [address] Leukocytes [#/volume] correc alison for nucleated erythrocytes in Blood by Automated counOrdered By: [facility] on 08-25-2022 WBC corrected for nucl RBC Auto (Bld) [#/Vol] 6.9 10*3/uL 3.8-11.6 [facility] Lipid Profile Outreach LDL Cholesterol,Calculated 69 mg/dL Normal 0-100 [facility] Comment on above: Result Comment: LDL ATP III CLASSIFICATION LDL less than 100 mg/dL Optimal LDL 100-129 mg/dL Near or above optimal LDL 130-159 mg/dL Borderline high LDL 160-189 mg/dL High LDL greater than 189 mg/dL Very high Performed By: #### C BCNOOUTREACH, OUTREACH GLYCO, OUTREACH CMP, OUTREACH LIPID, OUTREACH TSH #### [address] Triglyceride w/Reflex 72 mg/dL Normal 0-149 [facility] Comment on above: Result Comment: TRIG ATP III CLASSIFICATION TRIG less than 150 mg/dL Normal TRIG 150-199 mg/dL Borderline high TRIG 200-500 mg/dL High TRIG greater than 500 mg/dL Very high Standard traceable to the Center for Disease Conrtrol and Prevention (CDC) test method. Performed By: #### C BCNOOUTREACH, OUTREACH GLYCO, OUTREACH CMP, OUTREACH LIPID, OUTREACH TSH #### [facility] [address] [place] [id number] [place] VLDL CHOLESTEROL 14 mg/dL Normal [facility] Comment on above: Performed By: #### C BCNOOUTREACH, OUTREACH GLYCO, OUTREACH CMP, OUTREACH LIPID, OUTREACH TSH #### [facility] [address] MCH [Entitic mass] by Automa alison countOrdered By: OUTREACH COMMUNITY on 08-25-2022 MCH (RBC) [Entitic mass] 32.0 pg Normal 24.7-34.3 [facility] Comment on above: Performed By: #### C BCNOOUTREACH, OUTREACH GLYCO, OUTREACH CMP, OUTREACH LIPID, OUTREACH TSH #### [facility] [address] MCHC Auto (RBC) [Mass/Vol]Or dered By: [facility] on 08-25-2022 MCHC (RBC) [Mass/Vol] 33.3 g/dL 32.0-35.0 [facility] MCV [Entitic volume] by Auto mated countOrdered By: [facility] on 08-25-2022 MCV (RBC) [Entitic vol] 96.3 fL Normal 80-100 [facility] Comment on above: Performed By: #### C BCNOOUTREACH, OUTREACH GLYCO, OUTREACH CMP, OUTREACH LIPID, OUTREACH TSH #### [facility] [address] [place] [address] No Panel InformationOrdered By: OUTREACH COMMUNITY on 08-25-2022 Pharmacy Creatinine Clearance (Chem N/A [facility] Outreach Glycoon 08-25-2022 Glucose [Mass/Vol] 128 mg/dL Normal [facility] Comment on above: Result Comment: PERF ORMED BY: [place] [address] PATHOLOGIST SENIOR TALENT MANAGEMENT CONSULTANT ANTOINE CISNEROS M.D. Performed By: #### C BCNOOUTREACH, OUTREACH GLYCO, OUTREACH CMP, OUTREACH LIPID, OUTREACH TSH #### [facility] [address] [place] [address] Outreach GlycoOrdered By: [facility] on 08-25-2022 HbA1c (Bld) [Mass fraction] 6.1 % High 4.3-5.6 [facility] Comment on above: Increased risk for d iabetes: 5.7 - 6.4diabetes: >6.4glycemic control for adults with diabetes: <7.0 Result Comment: Incr eased risk for diabetes: 5.7 - 6.4 diabetes: >6.4 glycemic control for adults with diabetes: <7.0 Performed By: #### C BCNOOUTREACH, OUTREACH GLYCO, OUTREACH CMP, OUTREACH LIPID, OUTREACH TSH #### [facility] [address] [place] [address] [place] Platelet mean volume [Entiti c volume] in Blood by Automated countOrdered By: [facility]REACH COMMUNITY on 08-25-2022 Platelet mean volume (Bld) [Entitic vol] 9.4 fL Normal 6.3-10.7 [facility] Comment on above: Result Comment: PERF ORMED BY: [place] [address] PATHOLOGIST SENIOR TALENT MANAGEMENT CONSULTANT ANTOINE CISNEROS M.D. Performed By: #### C BCNOOUTREACH, OUTREACH GLYCO, OUTREACH CMP, OUTREACH LIPID, OUTREACH TSH #### [facility] [address] [place] [address] [place] Platelets [#/volume] in Bloo d by Automated countOrdered By: [facility] on 08-25-2022 Platelets (Bld) [#/Vol] 241 10*3/uL Normal 150-450 [facility] Comment on above: Performed By: #### C BCNOOUTREACH, OUTREACH GLYCO, OUTREACH CMP, OUTREACH LIPID, OUTREACH TSH #### [place] [address] [place] Potassium [Moles/volume] in Serum or PlasmaOrdered By: OUTREACH COMMUNITY on 08-25-2022 Potassium [Moles/Vol] 4.7 mmol/L Normal 3.5-5.1 [facility] Comment on above: Performed By: #### C BCNOOUTREACH, OUTREACH GLYCO, OUTREACH CMP, OUTREACH LIPID, OUTREACH TSH #### [place] [id number] [place] Protein [Mass/volume] in Ser um or PlasmaOrdered By: OUTREACH COMMUNITY on 08-25-2022 Protein [Mass/Vol] 6.7 g/dL Normal 6.4-8.9 [facility] Comment on above: Performed By: #### C BCNOOUTREACH, OUTREACH GLYCO, OUTREACH CMP, OUTREACH LIPID, OUTREACH TSH #### [facility] [address] Serum or plasma anion gap de terminationOrdered By: OUTREACH COMMUNITY on 08-25-2022 Anion gap [Moles/Vol] 12.4 mmol/L Normal 6.0-15.0 [facility] Comment on above: Performed By: #### C BCNOOUTREACH, OUTREACH GLYCO, OUTREACH CMP, OUTREACH LIPID, OUTREACH TSH #### [facility] [address] [place] [address] Serum or plasma high density lipoprotein (HDL) cholesterol measurementOrdered By: [facility]REACH COMMUNITY on 08-25-2022 Cholesterol in HDL [Mass/Vol] 50 mg/dL Normal 35-85 [facility] Comment on above: HDL CHOL ATP-III CLA SSIFICATION Cardiovascular RiskHDL > or equal to 60 mg/dL LOWHDL < 40 mg/dL HIGH Result Comment: HDL CHOL ATP-III CLASSIFICATION Cardiovascular Risk HDL > or equal to 60 mg/dL LOW HDL < 40 mg/dL HIGH Performed By: #### C BCNOOUTREACH, OUTREACH GLYCO, OUTREACH CMP, OUTREACH LIPID, OUTREACH TSH #### [facility] [address] [place] [address] Serum or plasma total choles terol/high density lipoprotein (HDL) cholesterol mass ratOrdered By: [facility]REACH COMMUNITY on 08-25-2022 Cholesterol.total/Samira sterol in HDL [Mass ratio] 2.7 {ratio} Normal <5.0 [facility] Comment on above: Performed By: #### C BCNOOUTREACH, OUTREACH GLYCO, OUTREACH CMP, OUTREACH LIPID, OUTREACH TSH #### [facility] [address] [place] [address] Sodium [Moles/volume] in Ser um or PlasmaOrdered By: [facility]REACH COMM[facility]ITY on 08-25-2022 Sodium [Moles/Vol] 142 mmol/L Normal 136-145 [facility] Comment on above: Performed By: #### C BCNOOUTREACH, OUTREACH GLYCO, OUTREACH CMP, OUTREACH LIPID, OUTREACH TSH #### [facility] [address] [place] [address] Thyrotropin [Units/volume] i n Serum or PlasmaOrdered By: [facility] on 08-25-2022 TSH Qn 1.44 m[IU]/L Normal 0.45-5.33 [facility] Comment on above: Result Comment: PERF ORMED BY: [facility] [address] [place] [address] PATHOLOGIST SENIOR TALENT MANAGEMENT CONSULTANT ANTOINE CISNEROS M.D. Performed By: #### C BCNOOUTREACH, OUTREACH GLYCO, OUTREACH CMP, OUTREACH LIPID, OUTREACH TSH #### [facility] [address] Triglyceride [Mass/volume] i n Serum or PlasmaOrdered By: [facility] on 08-25-2022 Triglyceride [Mass/Vol] 72 mg/dL 0-149 [facility] Comment on above: TRIG ATP III CLASSIF ICATIONTRIG less than 150 mg/dL NormalTRIG 150-199 mg/dL Borderline highTRIG 200-500 mg/dL High TRIG greater than 500 mg/dL Very highStandard traceable to the Center for Disease Conrtrol and Prevention (CDC) test method. Urea nitrogen [Mass/volume] in Serum or PlasmaOrdered By: [facility] on 08-25-2022 Urea nitrogen [Mass/Vol] 15 mg/dL Normal 7-25 [facility] Comment on above: Performed By: #### C BCNOOUTREACH, OUTREACH GLYCO, OUTREACH CMP, OUTREACH LIPID, OUTREACH TSH #### [facility] [address] SCREENING MAMMOGRAM W/SWETA, BILATERAL*on 04-27-2022 SCREENING [...] VERY IMPORTANT TO YOUR HEALTH. THE CURRENT [employer] OF RADIOLOG[employer] AND NATIONAL COMPREHENSIVE CANCER NETWORK GUIDELINES RECOMMENDS ANNUAL MAMMOGRAPHY BEGINNING AT AGE 40 THIS FACILITY USES A REMINDER SYSTEM TO ENSURE ALL PATIENTS RECEIVE REMINDER NOTIFICATIONS AT THE APPROPRIATE TIME BASED ON THE RECOMMENDATIONS OF THIS EXAM. Board Certified Radiologist. Accredited by the ACR and FDA. Report reported and signed by Stevenson Nick on 04/27/2022 1048 Normal [facility] Plan Checker GLYCOHEMOGLOBIN A1Con 2017 Glucose mass conc 131 mg/dL Normal [facility] Comment on above: Performed By: #### A 1C ####[facility] [id number] [place] Hemoglobin A1c/Hemoglobin.total mass fraction (Bld) 6.2 % Critically high <=6.0 [facility] Comment on above: Performed By: #### A 1C ####[facility] [id number] [place] Vital Signs Date Time Vital Sign Value Performing Clinician Ap balderas 03-17-2024 15:14-0400 Blood Pressure Location Vamsi MARTINEZ [facility] 03-17-2024 15:14-0400 Diastolic blood pressure 100 mm[Hg] Vamsi MARTINEZ [facility] 03-17-2024 15:14-0400 Heart rate 76 /min Vamsi HARTL [facility] 03-17-2024 15:14-0400 Respiratory rate 16 /min Vamsi MARTINEZ [facility] 03-17-2024 15:14-0400 Systolic blood pressure 132 mm[Hg] Vamsi MARTINEZ [facility] Encounters Encounter Date Encounter Type Care Provider Facility Start: 03-17-2024 End: 03-17-2024 ambulatory Vamsi MARTINEZ Facility:[facility] Start: 03-17-2024 End: 03-17-2024 Patient encounter procedure Vamsi MARTINEZ [facility] Start: 07-27-2023 End: 07-27-2023 ambulatory Outreach Community Facility:[facility] Start: 07-27-2023 End: 07-27-2023 ambulatory MD Arley Mckay Work Phone: [facility] Work Phone: Start: 07-27-2023 End: 07-27-2023 Departed Referred MD Arley Mckay Work Phone: [facility] Work Phone: Start: 06-06-2023 End: 06-07-2023 ambulatory LALITA ROSS Not Available Start: 04-25-2023 End: 04-25-2023 ambulatory LALITA ROSS Not Available Start: 08-25-2022 End: 08-25-2022 ambulatory Outreach Community Facility:[facility] Start: 08-25-2022 End: 08-25-2022 ambulatory MD Arley Mckay Work Phone: [facility] Work Phone: Start: 08-25-2022 End: 08-25-2022 Departed Referred MD Arley Mckay Work Phone: [facility] Work Phone: Start: 09-09-2017 End: 09-10-2017 Ambulatory ARLEY MCKAY Facility:H1 Procedures Date Procedure Procedure Detail Performing Clinician section Vamsi Yancey Dilation and curettage Gigi MARTINEZ Tonsillectomy Vamsi MARTINEZ Immunizations Immunization Date Immunization Notes Care Provider Fa [facility] 05-01-2022 SARS-CoV-2 (COVID-19 ) [id number] Vamsi MARTINEZ [facility] 03-21-2021 SARS-CoV-2 (COVID-19 ) mRNA BNT-162b2 vax Vamsi MARTINEZ [facility] 08-30-2020 SARS-CoV-2 (COVID-19 ) mRNA BNT-162b2 samantha MARTINEZ [facility] 08-09-2020 SARS-CoV-2 (COVID-19 ) mRNA BNT-162b2 samantha MARTINEZ [facility] Payers Date Payer Category Payer Self-pay [id number] 2020 Unknown [id number] 1968 Unknown [id number] 1968 Unknown [id number] 1968 Unknown [id number] 1959 Self-pay [id number] Private Health Insurance [facility] [id number] Unknown MMO [employer] [id number] Unknown [id number] Unknown [id number] Social History Date Type Detail [facility] Work Phone: Start: 1970 Sex Assigned At Female F [facility] Start: 03-17-2024 Tobacco smoking status Never s moked tobacco (finding) [facility] Tobacco smoking status Never [facility] Sex Assigned At Female [facility] Functional Status Date Assessment Result Facility 03-17-2024 Functional Status N/A [facility] [place] Clinical Note 03-17-2024 Note Date & Type Note Facility 03-17-2024 Note General Surgery Offi ce/Clinic Note Chief Complaint consultation for colonoscopy HPI Staff 53 year old female presents on consultation from Dr. Mckay for positive occult stool. Patient presented to [place] ED 02/15 with complaint of several hour [...] Vitamins oral t (more content not included)... [facility] Comment on above: Result Comment: Elec tronically Signed By: MICHELLE RAMOS, Vamsi Eubanks\buffy\Date and Time Signed: 03/17/24 16:21 EDT Evaluation + Plan note Note Date & Type Note Facility Evaluation + Plan note No data available for this section [facility] Evaluation note Note Date & Type Note Facility Evaluation note No assessment information availa [facility] Work Phone: Hospital Discharge instructions Note Date & Type Note Facility Hospital Discharge instructions No data available for this section [facility] Progress note Note Date & Type Note Facility Progress note No data available for this section [facility] Summary Purpose Family History No Family [...] and content) DATE CREATED AUTHOR 11/28/2017 [facility] pital DATE CREATED AUTHOR AUTHOR'S ORGANIZ ATION 04/28/2022 [facility] DATE CREATED AUTHOR AUTHOR'S ORGANIZ ATION 06/10/2023 [facility] DATE CREATED AUTHOR AUTHOR'S ORGANIZ ATION 07/28/2023 [facility] DATE CREATED AUTHOR AUTHOR'S ORGANIZ ATION 03/19/2024 Leonid Noriega [facility] Care Teams (unrecognized sec tion and content) Personnel Name: Arley Mckay MD Address: Address: [address] [place] [address] Team Status: Active Member Role Status Sendy [...] BE BASED ON THE PRIMARY CLINICAL RECORDS. [facility] [employer] provides no warranty or guarantee of the accuracy or completeness of information in this document.
[2024-04-15 07:31] VITALS: BP 155/115; PULSE 84; TEMP 36.3; O2SAT 99; BMI 47.6
[2024-04-15 07:49] LABS: Glucometer 102 mg/dL (74-106)
[2024-04-15] MEDS: 0.9 % SODIUM CHLORIDE 500 ML 50 ML IV (07:49)
[2024-04-15 07:50] VITALS: BP 156/92
[2024-04-15 09:07] VITALS: BP 94/62; PULSE 86; TEMP 36.8; O2SAT 100
[2024-04-15 09:22] VITALS: BP 98/83; PULSE 73; O2SAT 99
[2024-04-15 09:37] VITALS: BP 128/66; PULSE 68; O2SAT 98
== END 2024-04-15 09:37 | disposition home or self-care (01) ==
PROVIDERS: PCP Family Medicine; Visit Provider Surgery
PROC: (CPT 811; principal; 2024-04-15 08:25)
DX: R19.5 Other fecal abnormalities (principal); R93.5 Abnormal findings on diagnostic imaging of other abdominal regions, including retroperitoneum; K62.5 Hemorrhage of anus and rectum; R10.9 Unspecified abdominal pain; I10 Essential (primary) hypertension; E11.9 Type 2 diabetes mellitus without complications; E03.9 Hypothyroidism, unspecified; E66.01 Morbid (severe) obesity due to excess calories; E78.00 Pure hypercholesterolemia, unspecified; Z79.84 Long term (current) use of oral hypoglycemic drugs; Z79.85 Long-term (current) use of injectable non-insulin antidiabetic drugs; Z68.42 Body mass index [BMI] 45.0-49.9, adult
CPT/HCPCS: 45380; 36415; 82948; J2704